=== PATIENT | male | born 1965 | race Caucasian/White ===

== ENCOUNTER 2019-04-16 17:09 | Inpatient (IN) | payer OTHER ==
[~2019-04-16] VITALS: Ht 185.4 cm; Wt 158.3 kg
[2019-04-16] MEDS ORDERED: IV NORMAL SALINE 1000ML BAG 1,000 ML IV ONE ×3 (18:15→20:45)
[2019-04-16] MEDS ORDERED: ONDANSETRON PF 4 MG/2 ML VIAL. IV ONE (18:15)
[2019-04-16] MEDS ORDERED: MORPHINE SULFATE 4 MG/ML VIAL. IV/SQ PRN (18:15)
[2019-04-16] MEDS ORDERED: FAMOTIDINE 20 MG/2 ML VIAL IVP ONE (18:15)
[2019-04-16 18:31] LABS: BASO % 0 % (0-3); EOS % 0 % (0-3); HEMATOCRIT 46.7 % (39.0-53.0); HEMOGLOBIN 15.7 g/dL (13.0-17.5); LYMPH # 0.8 x10^3/uL (1.0-4.8); LYMPH % 5 % (24-48); MEAN CORPUSCULAR HEMOGLOBIN 30 pg (25-35); MEAN CORPUSCULAR HGB CONC 34 g/dL (31-37); MEAN CORPUSCULAR VOLUME 88 fL (79-100); MONO # 0.8 x10^3/uL (0.0-1.1); MONO % 4 % (0-9); NEUT # 15.6 x10^3/uL (1.8-7.7); NEUT % 91 % (31-73); PLATELET COUNT 289 x10^3/uL (140-400); RED CELL DISTRIBUTION WIDTH 14.4 % (11.5-14.5); WHITE BLOOD COUNT 17.1 x10^3/uL (4.0-11.0)
[2019-04-16 18:52] LABS: ALBUMIN 3.2 g/dL (3.4-5.0); ALBUMIN/GLOBULIN RATIO 0.7 (1.0-1.7); CALCIUM 8.5 mg/dL (8.5-10.1); CREATININE 2.5 mg/dL (0.7-1.3); MAGNESIUM 1.7 mg/dL (1.8-2.4); POTASSIUM 3.8 mmol/L (3.5-5.1); TOTAL PROTEIN 7.5 g/dL (6.4-8.2)
[2019-04-16] MEDS ORDERED: INSULIN REGULAR 100 UNIT/ML 3ML VIAL. IV ONE ×2 (19:15→20:30)
[2019-04-16 19:55] LABS: BILIRUBIN,URINE NEGATIVE (NEG); CLARITY,URINE CLEAR; COLOR,URINE YELLOW; NITRITE,URINE NEGATIVE (NEG); PROTEIN,URINE >=300 mg/dL (NEG-TRACE); UROBILINOGEN,URINE 0.2 mg/dL (0.2 mg/dL)
--- NOTE | 2019-04-16 19:58 | RAD ---
Exam: CT abdomen and pelvis without contrast INDICATION: Abdominal pain TECHNIQUE: Sequential axial images through the abdomen and pelvis obtained without IV contrast. Sagittal and coronal reformatted images were reconstructed from the axial data and reviewed. Comparisons: None FINDINGS: Heart size is normal. No pericardial effusion. Visualized lung bases are clear. No pleural effusion. Evaluation of the solid organs is limited secondary to noncontrast technique. Liver, spleen, gallbladder and adrenals are unremarkable. There is fatty atrophy of the pancreatic head and body. The pancreatic tail is near completely replaced with a multilobulated hyperattenuating mass measuring 11.0 x 4.4 cm. No perinephric inflammation or hydronephrosis. No renal or ureteral calculi. Bladder is distended and appears thin walled. Prostate is not enlarged. Inflammatory changes are seen extending from the second portion of the duodenum down into the mesentery of the right lower quadrant. There is mild bowel wall thickening involving the hepatic flexure of the colon. Remainder of the large and small bowel are unremarkable. No obstruction. Abdominal aorta has a normal course and caliber. No enlarged intra-abdominal lymph nodes are identified. No suspicious osseous lesions or acute fractures. IMPRESSION: 1. Extensive Inflammatory changes extending from the duodenum down into the right lower quadrant mesentery and involving the pancreatic head as well as the hepatic flexure of the colon. Origin of findings is difficult to ascertain and possible differential considerations include colitis, duodenitis, and/or pancreatitis. 2. Lobulated appearance of the pancreatic tail with fatty atrophy of the pancreatic head and neck. Findings are abnormal possible differential considerations include pancreatic malignancy. Autoimmune pancreatitis is also considered. Recommend correlation with IgG4 levels. Further evaluation with MRI MRCP with contrast is recommended after resolution of primary issue. Exposure: One or more of the following in the visualized dose reduction techniques were utilized for this examination: 1. Automated exposure control 2. Adjustment of the MA and/or KV according to patient size 3. Use of iterative of reconstructive technique Electronically signed by: Jessika Beth MD (04/16/2019 7:55 PM) [facility]
[2019-04-16 20:05] LABS: % BANDS 5 % (0-9); % LYMPHS 7 % (24-48); % MONOS 5 % (0-10); % SEGS 83 % (35-66)
[2019-04-16 20:06] LABS: PLT ESTIMATE ADEQUATE (ADEQUATE)
[2019-04-16 20:13] LABS: SQUAMOUS EPITHELIAL CELL,UR MOD /LPF
[2019-04-16 20:14] LABS: RBC,URINE 0 /HPF (0-2)
[2019-04-16 20:15] LABS: BACTERIA,URINE FEW /HPF (0-FEW); WBC,URINE OCC /HPF (0-4)
[2019-04-16 20:20] LABS: AMPHETAMINE/METHAMPHETAMINE NEG (NEG); BARBITURATES NEG (NEG); BENZODIAZEPINES NEG (NEG); CANNABINOIDS NEG (NEG); COCAINE NEG (NEG); METHADONE NEG (NEG); OPIATES POS (NEG); PHENCYCLIDINE NEG (NEG)
[2019-04-16] MEDS ORDERED: LABETALOL 20 MG/4 ML DISP.SYRIN. IVP PRN (20:30)
[2019-04-16] MEDS ORDERED: diphenhydrAMINE 50 MG/ML VIAL IVP PRN (20:30)
[2019-04-16] MEDS ORDERED: MAGNESIUM SULFATE 1GM 100 ML IV ONE (20:30)
[2019-04-16] MEDS ORDERED: fentaNYL PF VIAL 100 MCG/2 ML VIAL IV PRN (20:30)
[2019-04-16] MEDS: IV NORMAL SALINE 1000ML BAG 1,000 ML IV SCH (20:41)
--- NOTE | 2019-04-16 20:42 | PHYS DOC ---
Past Medical History Past Medical History: Diabetes-Type II, Hypertension (CHRISTINE SANTIAGO APRN) Past Surgical History: No Surgical History (CHRISTINE SANTIAGO APRN) Alcohol Use: None Drug Use: None (CHRISTINE SANTIAGO APRN) Adult General Chief Complaint Chief Complaint: ABDOMINAL PAIN HPI HPI Patient is a 54 year old male with hx of DM II, HTN, Renal fx from [facility] who presents with a logistics officer to be evaluated for generalized moderate abdominal pain with nausea and vomiting that began yesterday morning. Patient states his blood glucose is also been running high since yesterday. He states he was given insulin sometime today. Denies any diarrhea. Denies any hematemesis or melena. (CHRISTINE SANTIAGO APRN) Review of Systems Review of Systems Constitutional: Denies fever or chills [] Eyes: Denies change in visual acuity, redness, or eye pain [] HENT: Denies nasal congestion or sore throat [] Respiratory: Denies cough or shortness of breath [] Cardiovascular: No additional information not addressed in HPI [] GI: Reports abdominal pain, nausea and vomiting, denies bloody stools or dayna rrhea [] : Denies dysuria or hematuria [] Musculoskeletal: Denies back pain or joint pain [] Integument: Denies rash or skin lesions [] Neurologic: Denies headache, focal weakness or sensory changes [] All other systems were reviewed and found to be within normal limits, except as documented in this note. (CHRISTINE SANTIAGO APRN) Current Medications Current Medications Current Medications Medications (Trade) Dose Ordered Sig/Tigist Start Time Stop Time Status Last Admin Dose Admin Clonidine HCl (Catapres) 0.1 mg PRN Q1HR PRN 04/16/19 20:30 Diphenhydramine HCl (Benadryl) 25 mg PRN QHS PRN 04/16/19 20:30 Famotidine (Pepcid Vial) 20 mg 1X ONCE 04/16/19 18:15 04/16/19 18:16 DC 04/16/19 18:36 20 MG Fentanyl Citrate (Fentanyl 2ml Vial) 50 mcg PRN Q2HR PRN 04/16/19 20:30 Insulin Human Regular (HumuLIN R VIAL) 20 unit 1X ONCE 04/16/19 20:30 8/16/19 20:31 DC 04/16/19 21:18 20 UNIT Labetalol HCl (Normodyne Iv Push) 20 mg PRN Q2HR PRN 04/16/19 20:30 04/16/19 20:42 20 MG Magnesium Sulfate/ Dextrose 100 ml @ 100 mls/hr 1X ONCE 04/16/19 20:30 04/16/19 21:29 DC 04/16/19 20:42 100 MLS/HR Morphine Sulfate (Morphine Sulfate) 4 mg PRN Q15MIN PRN 04/16/19 18:15 04/17/19 18:14 04/16/19 18:36 4 MG Ondansetron HCl (Zofran) 4 mg 1X ONCE 04/16/19 18:15 04/16/19 18:16 DC 04/16/19 18:36 4 MG Sodium Chloride 1,000 ml @ 125 mls/hr Q8H 04/16/19 20:30 04/16/19 20:42 150 MLS/HR (MELODIE BRUNSON DO) Allergies Allergies Allergies Coded Allergies Type Severity Reaction Last Updated Verified No Known Drug Allergies 04/16/19 No (MELODIE BRUNSON DO) Physical Exam Physical Exam Constitutional: Well developed, well nourished, no acute distress, non-toxic appearance. [] HENT: Normocephalic, atraumatic, bilateral external ears normal, oropharynx moist, no oral exudates, nose normal. [] Eyes: PERRLA, EOMI, conjunctiva normal, no discharge. [] Neck: Normal range of motion, no tenderness, supple, no stridor. [] Cardiovascular:Heart rate regular rhythm, no murmur [] Lungs & Thorax: Bilateral breath sounds clear to auscultation [] Abdomen: Obese abdomen. Bowel sounds normal, soft, diffuse tenderness throughout the abdomen, no point tenderness the right upper quadrant or right lower quadrant, negative Bryant sign, negative psoas sign, no guarding, no rebound tenderness no masses, no pulsatile masses. [] Skin: Warm, dry, no erythema, no rash. [] Back: No tenderness, no CVA tenderness. [] Extremities: No tenderness, no cyanosis, no clubbing, ROM intact, no edema. [] Neurologic: Alert and oriented X 3, normal motor function, normal sensory function, no focal deficits noted. [] Psychologic: Affect normal, judgement normal, mood normal. [] (CHRISTINE SANTIAGO PATHOLOGY LABORATORY AIDE) Current Patient Data Vital Signs Vital Signs Date Time Temp Pulse Resp B/P (MAP) Pulse Ox O2 Delivery O2 Flow Rate FiO2 04/16/19 19:13 92 21 170/80 (110) 92 Nasal Cannula 2.0 04/16/19 17:50 97.8 97.8 (BRUNSON,MELODIE rBo DO) Lab Values Laboratory Tests Test 04/16/19 17:56 04/16/19 19:45 White Blood Count 17.1 x10^3/uL (4.0-11.0) H Red Blood Count 5.30 x10^6/uL (4.30-5.70) Hemoglobin 15.7 g/dL (13.0-17.5) Hematocrit 46.7 % (39.0-53.0) Mean Corpuscular Volume 88 fL (79-100) Mean Corpuscular Hemoglobin 30 pg (25-35) Mean Corpuscular Hemoglobin Concent 34 g/dL (31-37) Red Cell Distribution Width 14.4 % (11.5-14.5) Platelet Count 289 x10^3/uL (140-400) Neutrophils (%) (Auto) 91 % (31-73) H Lymphocytes (%) (Auto) 5 % (24-48) L Monocytes (%) (Auto) 4 % (0-9) Eosinophils (%) (Auto) 0 % (0-3) Basophils (%) (Auto) 0 % (0-3) Neutrophils # (Auto) 15.6 x10^3/uL (1.8-7.7) H Lymphocytes # (Auto) 0.8 x10^3/uL (1.0-4.8) L Monocytes # (Auto) 0.8 x10^3/uL (0.0-1.1) Eosinophils # (Auto) 0.0 x10^3/uL (0.0-0.7) Basophils # (Auto) 0.0 x10^3/uL (0.0-0.2) Segmented Neutrophils % 83 % (35-66) H Band Neutrophils % 5 % (0-9) Lymphocytes % 7 % (24-48) L Monocytes % 5 % (0-10) Platelet Estimate Adequate (ADEQUATE) Sodium Level 139 mmol/L (136-145) Potassium Level 3.8 mmol/L (3.5-5.1) Chloride Level 99 mmol/L (98-107) Carbon Dioxide Level 25 mmol/L (21-32) Anion Gap 15 (6-14) H Blood Urea Nitrogen 36 mg/dL (8-26) H Creatinine 2.5 mg/dL (0.7-1.3) H Estimated GFR (Cockcroft-Gault) 27.0 BUN/Creatinine Ratio 14 (6-20) Glucose Level 574 mg/dL (70-99) *H Calcium Level 8.5 mg/dL (8.5-10.1) Magnesium Level 1.7 mg/dL (1.8-2.4) L Total Bilirubin 1.0 mg/dL (0.2-1.0) Aspartate Amino Transferase (AST) 20 U/L (15-37) Alanine Aminotransferase (ALT) 30 U/L (16-63) Alkaline Phosphatase 133 U/L (46-116) H Creatine Kinase 263 U/L (39-308) Creatine Kinase MB (Mass) 5.9 ng/mL (0.0-3.6) H Creatine Kinase MB Relative Index 2.2 % (0-4) Troponin I Quantitative 0.048 ng/mL (0.000-0.055) RU-Xys-U-Type Natriuretic Peptide 1718 pg/mL (0-124) H Total Protein 7.5 g/dL (6.4-8.2) Albumin 3.2 g/dL (3.4-5.0) L Albumin/Globulin Ratio 0.7 (1.0-1.7) L Lipase 1691 U/L (73-393) H Thyroid Stimulating Hormone (TSH) 1.247 uIU/mL (0.358-3.74) Free Thyroxine 0.99 ng/dL (0.76-1.46) Free Triiodothyronine (T3) pg/mL 1.96 pg/mL (2.18-3.98) L Urine Collection Type Unknown Urine Color Yellow Urine Clarity Clear Urine pH 5.0 Urine Specific [place] 1.025 Urine Protein >=300 mg/dL (NEG-TRACE) Urine Glucose (UA) >=1000 mg/dL (NEG) Urine Ketones (Stick) Trace mg/dL (NEG) Urine Blood Moderate (NEG) Urine Nitrite Negative (NEG) Urine Bilirubin Negative (NEG) Urine Urobilinogen Dipstick 0.2 mg/dL (0.2 mg/dL) Urine Leukocyte Esterase Negative (NEG) Urine RBC 0 /HPF (0-2) Urine WBC Occ /HPF (0-4) Urine Squamous Epithelial Cells Mod /LPF Urine Bacteria Few /HPF (0-FEW) Urine Mucus Slight /LPF Urine Opiates Screen Pos (NEG) Urine Methadone Screen Neg (NEG) Urine Barbiturates Neg (NEG) Urine Phencyclidine Screen Neg (NEG) Urine Amphetamine/Methamphetamine Neg (NEG) Urine Benzodiazepines Screen Neg (NEG) Urine Cocaine Screen Neg (NEG) Urine Cannabinoids Screen Neg (NEG) Urine Ethyl Alcohol Neg (NEG) Laboratory Tests 04/16/19 17:56 Laboratory Tests 04/16/19 17:56 (MELODIE BRUNSON DO) EKG EKG [address] Alegre sinus rhythm HR 98 no STEMI[] (CHRISTINE SANTIAGO APRN) Radiology/Procedures Radiology/Procedures []PROCEDURE: CT ABDOMEN PELVIS WO CONTRAST Exam: CT abdomen and pelvis without contrast INDICATION: Abdominal pain TECHNIQUE: Sequential axial images through the abdomen and pelvis obtained without IV contrast. Sagittal and coronal reformatted images were reconstructed from the axial data and reviewed. Comparisons: None FINDINGS: Heart size is normal. No pericardial effusion. Visualized lung bases are clear. No pleural effusion. Evaluation of the solid organs is limited secondary to noncontrast technique. Liver, spleen, gallbladder and adrenals are unremarkable. There is fatty atrophy of the pancreatic head and body. The pancreatic tail is near completely replaced with a multilobulated hyperattenuating mass measuring 11.0 x 4.4 cm. No perinephric inflammation or hydronephrosis. No renal or ureteral calculi. Bladder is distended and appears thin walled. Prostate is not enlarged. Inflammatory changes are seen extending from the second portion of the duodenum down into the mesentery of the right lower quadrant. There is mild bowel wall thickening involving the hepatic flexure of the colon. Remainder of the large and small bowel are unremarkable. No obstruction. Abdominal aorta has a normal course and caliber. No enlarged intra-abdominal lymph nodes are identified. No suspicious osseous lesions or acute fractures. IMPRESSION: 1. Extensive Inflammatory changes extending from the duodenum down into the right lower quadrant mesentery and involving the pancreatic head as well as the hepatic flexure of the colon. Origin of findings is difficult to ascertain and possible differential considerations include colitis, duodenitis, and/or pancreatitis. 2. Lobulated appearance of the pancreatic tail with fatty atrophy of the pancreatic head and neck. Findings are abnormal possible differential considerations include pancreatic malignancy. Autoimmune pancreatitis is also considered. Recommend correlation with IgG4 levels. Further evaluation with MRI MRCP with contrast is recommended after resolution of primary issue. Exposure: One or more of the following in the visualized dose reduction techniques were utilized for this examination: 1. Automated exposure control 2. Adjustment of the MA and/or KV according to patient size 3. Use of iterative of reconstructive technique Electronically signed by: Jessika Briggs MD (04/16/2019 7:55 PM) [facility] DICTATED and SIGNED BY: JESSIKA BRIGGS MD DATE: 04/16/191954 (CHRISTINE SANTIAGO APRN) Course & Med Decision Making Course & Med Decision Making Pertinent Labs and Imaging studies reviewed. (See chart for details) This is a 54-year-old inmate male patient presenting to the ED today with generalized abdominal pain, nausea vomiting since yesterday. CBC with a WBC of 17.1 with a shift, CMP with glucose of 574, anion gap is 15, creatinine is 2.5, BUN is 36, patient states he has history of chronic renal insufficiency. Lipase 1691. CT of the abdomen and pelvic-Extensive Inflammatory changes extending from the duodenum down into the right lower quadrant mesentery and involving the pancreatic head as well as the hepatic flexure of the colon. Origin of findings is difficult to ascertain and possible differential considerations include colitis, duodenitis, and/or pancreatitis. Lobulated appearance of the pancreatic tail with fatty atrophy of the pancreatic head and neck. Findings are abnormal possible differential considerations include pancreatic malignancy. Autoimmune pancreatitis is also considered. Recommend correlation with IgG4 levels. Further evaluation with MRI MRCP with contrast is recommended after resolution of prim liam issue. Consulted with Dr. Suh who accepted patient for admission Routine consult placed for GI (CHRISTINE SANTIAGO APRN) Dragon Disclaimer Dragon Disclaimer This electronic medical record was generated, in whole or in part, using a voice recognition dictation system. (CHRISTINE SANTIAGO APRN) Departure Departure Impression: Primary Impression: Acute pancreatitis Additional Impressions: Hyperglycemia Chronic renal failure Disposition: ADMITTED INPATIENT Condition: STABLE Referrals: UNKNOWN PCP NAME (PCP) Attending Signature Attending Signature I have reviewed the PA/RESIDENTIAL CAREGIVER's note and plan of care. I was available for consultation as needed during the patient's visit in the emergency department. I agree with the clinical impression, plan, and disposition. (MELODIE BRUNSON DO) Problem Qualifiers Primary Impression: Acute pancreatitis Pancreatitis type: unspecified pancreatitis type Acute pancreatitis complication: unspecified Qualified Codes: K85.90 - Acute pancreatitis without necrosis or infection, unspecified Additional Impressions: Chronic renal failure Chronic kidney disease stage: unspecified stage Qualified Codes: N18.9 - Chronic kidney disease, unspecified CHRISTINE SANTIAGO PATHOLOGY LABORATORY AIDE Apr 16, 2019 20:42 MELODIE BRUNSON DO Apr 17, 2019 02:03
[2019-04-16] MEDS ORDERED: ONDANSETRON PF 4 MG/2 ML VIAL. IV PRN (20:45)
[2019-04-16] MEDS ORDERED: MORPHINE SULFATE 4 MG/ML VIAL. IV PRN (20:45)
[2019-04-16] MEDS ORDERED: CIPROFLOXACIN 400MG PREMIX 200 ML IV ONE (21:00)
[2019-04-16] MEDS: FAMOTIDINE 20 MG/2 ML VIAL IVP SCH (21:00)
--- NOTE | 2019-04-16 22:11 | PDOC1 ---
History and Physical Date of Admission Date of Admission DATE: 04/16/19 TIME: 22:05 Identification/Chief Complaint Chief Complaint abd pain Source Source: Caregiver, Chart review, Patient History of Present Illness History of Present Illness 54 y.op morbidly obese inmate, male, dm on hefty doses insulin with hgba1c anywhere between 7 and 8, abd pain today, epig and rt sided with lipase > 1K and abN ct showing pancreatitis hence admitted, NOn drinker bUT DM with BS 538, NO emesis but maybe some nausea, no fevers I have reconciled home meds, ageeable NPO< bowel rest, etc CT: IMPRESSION: 1. Extensive Inflammatory changes extending from the duodenum down into the right lower quadrant mesentery and involving the pancreatic head as well as the hepatic flexure of the colon. Origin of findings is difficult to ascertain and possible differential considerations include colitis, duodenitis, and/or pancreatitis. 2. Lobulated appearance of the pancreatic tail with fatty atrophy of the pancreatic head and neck. Findings are abnormal possible differential considerations include pancreatic malignancy. Autoimmune pancreatitis is also considered. Recommend correlation with IgG4 levels. Further evaluation with MRI MRCP with contrast is recommended after resolution of primary issue. Past Medical History Cardiovascular: HTN GI: Constipation, Diverticulosis Rheumatologic: Gout Endocrine: Diabetes, Hypothyroidism Past Surgical History Past Surgical History: No pertinent history Family History Family History: Family History Unknown Social History Smoke: No ALCOHOL: none Drugs: None Current Medications Current Medications Current Medications Morphine Sulfate (Morphine Sulfate) 4 mg PRN Q15MIN PRN IV/SQ PAIN GREATER THAN 3/10 Last administered on 04/16/19at 18:36; Start 04/16/19 at 18:15; Stop 04/17/19 at 18:14 Sodium Chloride 1,000 ml @ 1,000 mls/hr 1X ONCE IV Last administered on 04/16/19at 18:36; Start 04/16/19 at 18:15; Stop 04/16/19 at 19:14; Status DC Famotidine (Pepcid Vial) 20 mg 1X ONCE IVP Last administered on 04/16/19at 18:36; Start 04/16/19 at 18:15; Stop 04/16/19 at 18:16; Status DC Ondansetron HCl (Zofran) 4 mg 1X ONCE IV Last administered on 04/16/19at 18:36; Start 04/16/19 at 18:15; Stop 04/16/19 at 18:16; Status DC Sodium Chloride 1,000 ml @ 1,000 mls/hr 1X ONCE IV Last administered on 04/16/19at 19:21; Start 04/16/19 at 19:15; Stop 04/16/19 at 20:14; Status DC Insulin Human Regular (HumuLIN R VIAL) 8 unit 1X ONCE IV Last administered on 04/16/19at 19:21; Start 04/16/19 at 19:15; Stop 04/16/19 at 19:16; Status DC Sodium Chloride 1,000 ml @ 150 mls/hr Q6H40M IV Last administered on 04/16/19at 20:42; Start 04/16/19 at 20:30 Magnesium Sulfate/ Dextrose 100 ml @ 100 mls/hr 1X ONCE IV Last administered on 04/16/19at 20:42; Start 04/16/19 at 20:30; Stop 04/16/19 at 21:29; Status DC Insulin Human Regular (HumuLIN R VIAL) 20 unit 1X ONCE IV Last administered on 04/16/19at 21:18; Start 04/16/19 at 20:30; Stop 04/16/19 at 20:31; Status DC Labetalol HCl (Normodyne Iv Push) 20 mg PRN Q2HR PRN IVP HYPERTENSION Last administered on 04/16/19at 20:42; Start 04/16/19 at 20:30 Clonidine HCl (Catapres) 0.1 mg PRN Q1HR PRN PO HYPERTENSION; Start 04/16/19 at 20:30 Diphenhydramine HCl (Benadryl) 25 mg PRN QHS PRN IVP sleep; Start 04/16/19 at 20:30 Fentanyl Citrate (Fentanyl 2ml Vial) 50 mcg PRN Q2HR PRN IV PAIN; Start 04/16/19 at 20:30 Famotidine (Pepcid Vial) 20 mg QHS IVP ; Start 04/16/19 at 21:00 Ondansetron HCl (Zofran) 4 mg PRN Q8HRS PRN IV NAUSEA/VOMITING 1ST CHOICE; Start 04/16/19 at 20:45; Stop 04/17/19 at 20:44 Morphine Sulfate (Morphine Sulfate) 4 mg PRN Q2HR PRN IV SEVERE PAIN 7-10; Start 04/16/19 at 20:45; Stop 04/17/19 at 20:44 Ciprofloxacin/ Dextrose 200 ml @ 200 mls/hr 1X ONCE IV ; Start 04/16/19 at 21:00; Stop 04/16/19 at 21:59; Status DC Sodium Chloride 1,000 ml @ 75 mls/hr 1X ONCE IV ; Start 04/16/19 at 20:45; Stop 04/17/19 at 10:04 Allopurinol (Zyloprim) 100 mg DAILY PO ; Start 04/17/19 at 09:00; Status UNV Insulin Human Isoph/Insulin Regular (HumuLIN 70/30) 85 units QHS SQ ; Start 04/17/19 at 21:00; Status UNV Insulin Human Isoph/Insulin Regular (HumuLIN 70/30) 55 units DAILY SQ ; Start 04/17/19 at 09:00; Status UNV Insulin Human Lispro (HumaLOG) 0-9 UNITS TIDWMEALS SQ ; Start 04/17/19 at 08:00; Status UNV Dextrose (Dextrose 50%-Water Syringe) 12.5 gm PRN Q15MIN PRN IV SEE COMMENTS; Start 04/16/19 at 22:15; Status UNV Dextrose 250 ml PRN Q15MIN PRN IV SEE COMMENTS; Start 04/16/19 at 22:15; Status UNV Insulin Human Lispro (HumaLOG) 15 units TIDWMEALS SQ ; Start 04/17/19 at 08:00; Status UNV Allergies Allergies: Coded Allergies: No Known Drug Allergies (Unverified , 04/16/19) ROS Review of System as per HPI,rest 14 pt neg Physical Exam General: Alert, Oriented X3, Cooperative, No acute distress HEENT: Atraumatic, PERRLA, EOMI Lungs: Clear to auscultation, Normal air movement Heart: S1S2, RRR, no thrills, no rubs, no gallops, no murmurs Cardiovascular: S1, S2 Abdomen: Soft, Other (hypoactive BS< hard to assess pain sec to body habitus) Rectal Exam: not examined PELVIC: Nml ext genitalia Extremities: No clubbing, No cyanosis, No edema, Normal pulses, No tenderness/swelling Skin: No rashes, No breakdown, No significant lesion Neuro: Normal gait, Normal speech, Strength at 5/5 X4 ext, Normal tone, Sensation intact, Cranial nerves 3-12 NL, Reflexes 2+ Psych/Mental Status: Mental status NL, Mood NL Vitals Vitals Vital Signs Date Time Temp Pulse Resp B/P (MAP) Pulse Ox O2 Delivery O2 Flow Rate FiO2 04/16/19 20:42 92 170/80 04/16/19 19:13 21 92 Nasal Cannula 2.0 04/16/19 17:50 97.8 97.8 Labs Labs Laboratory Tests Test 04/16/19 17:56 04/16/19 19:45 White Blood Count 17.1 x10^3/uL (4.0-11.0) Red Blood Count 5.30 x10^6/uL (4.30-5.70) Hemoglobin 15.7 g/dL (13.0-17.5) Hematocrit 46.7 % (39.0-53.0) Mean Corpuscular Volume 88 fL (79-100) Mean Corpuscular Hemoglobin 30 pg (25-35) Mean Corpuscular Hemoglobin Concent 34 g/dL (31-37) Red Cell Distribution Width 14.4 % (11.5-14.5) Platelet Count 289 x10^3/uL (140-400) Neutrophils (%) (Auto) 91 % (31-73) Lymphocytes (%) (Auto) 5 % (24-48) Monocytes (%) (Auto) 4 % (0-9) Eosinophils (%) (Auto) 0 % (0-3) Basophils (%) (Auto) 0 % (0-3) Neutrophils # (Auto) 15.6 x10^3/uL (1.8-7.7) Lymphocytes # (Auto) 0.8 x10^3/uL (1.0-4.8) Monocytes # (Auto) 0.8 x10^3/uL (0.0-1.1) Eosinophils # (Auto) 0.0 x10^3/uL (0.0-0.7) Basophils # (Auto) 0.0 x10^3/uL (0.0-0.2) Segmented Neutrophils % 83 % (35-66) Band Neutrophils % 5 % (0-9) Lymphocytes % 7 % (24-48) Monocytes % 5 % (0-10) Platelet Estimate Adequate (ADEQUATE) Sodium Level 139 mmol/L (136-145) Potassium Level 3.8 mmol/L (3.5-5.1) Chloride Level 99 mmol/L (98-107) Carbon Dioxide Level 25 mmol/L (21-32) Anion Gap 15 (6-14) Blood Urea Nitrogen 36 mg/dL (8-26) Creatinine 2.5 mg/dL (0.7-1.3) Estimated GFR (Cockcroft-Gault) 27.0 BUN/Creatinine Ratio 14 (6-20) Glucose Level 574 mg/dL (70-99) Calcium Level 8.5 mg/dL (8.5-10.1) Magnesium Level 1.7 mg/dL (1.8-2.4) Total Bilirubin 1.0 mg/dL (0.2-1.0) Aspartate Amino Transf (AST/SGOT) 20 U/L (15-37) Alanine Aminotransferase (ALT/SGPT) 30 U/L (16-63) Alkaline Phosphatase 133 U/L (46-116) Creatine Kinase 263 U/L (39-308) Creatine Kinase MB (Mass) 5.9 ng/mL (0.0-3.6) Creatine Kinase MB Relative Index 2.2 % (0-4) Troponin I Quantitative 0.048 ng/mL (0.000-0.055) XR-Lzb-R-Type Natriuretic Peptide 1718 pg/mL (0-124) Total Protein 7.5 g/dL (6.4-8.2) Albumin 3.2 g/dL (3.4-5.0) Albumin/Globulin Ratio 0.7 (1.0-1.7) Lipase 1691 U/L (73-393) Thyroid Stimulating Hormone (TSH) 1.247 uIU/mL (0.358-3.74) Urine Collection Type Unknown Urine Color Yellow Urine Clarity Clear Urine pH 5.0 Urine Specific [place] 1.025 Urine Protein >=300 mg/dL (NEG-TRACE) Urine Glucose (UA) >=1000 mg/dL (NEG) Urine Ketones (Stick) Trace mg/dL (NEG) Urine Blood Moderate (NEG) Urine Nitrite Negative (NEG) Urine Bilirubin Negative (NEG) Urine Urobilinogen Dipstick 0.2 mg/dL (0.2 mg/dL) Urine Leukocyte Esterase Negative (NEG) Urine RBC 0 /HPF (0-2) Urine WBC Occ /HPF (0-4) Urine Squamous Epithelial Cells Mod /LPF Urine Bacteria Few /HPF (0-FEW) Urine Mucus Slight /LPF Urine Opiates Screen Pos (NEG) Urine Methadone Screen Neg (NEG) Urine Barbiturates Neg (NEG) Urine Phencyclidine Screen Neg (NEG) Urine Amphetamine/Methamphetamine Neg (NEG) Urine Benzodiazepines Screen Neg (NEG) Urine Cocaine Screen Neg (NEG) Urine Cannabinoids Screen Neg (NEG) Urine Ethyl Alcohol Neg (NEG) Laboratory Tests Test 04/16/19 17:56 04/16/19 19:45 White Blood Count 17.1 x10^3/uL (4.0-11.0) Red Blood Count 5.30 x10^6/uL (4.30-5.70) Hemoglobin 15.7 g/dL (13.0-17.5) Hematocrit 46.7 % (39.0-53.0) Mean Corpuscular Volume 88 fL (79-100) Mean Corpuscular Hemoglobin 30 pg (25-35) Mean Corpuscular Hemoglobin Concent 34 g/dL (31-37) Red Cell Distribution Width 14.4 % (11.5-14.5) Platelet Count 289 x10^3/uL (140-400) Neutrophils (%) (Auto) 91 % (31-73) Lymphocytes (%) (Auto) 5 % (24-48) Monocytes (%) (Auto) 4 % (0-9) Eosinophils (%) (Auto) 0 % (0-3) Basophils (%) (Auto) 0 % (0-3) Neutrophils # (Auto) 15.6 x10^3/uL (1.8-7.7) Lymphocytes # (Auto) 0.8 x10^3/uL (1.0-4.8) Monocytes # (Auto) 0.8 x10^3/uL (0.0-1.1) Eosinophils # (Auto) 0.0 x10^3/uL (0.0-0.7) Basophils # (Auto) 0.0 x10^3/uL (0.0-0.2) Segmented Neutrophils % 83 % (35-66) Band Neutrophils % 5 % (0-9) Lymphocytes % 7 % (24-48) Monocytes % 5 % (0-10) Platelet Estimate Adequate (ADEQUATE) Sodium Level 139 mmol/L (136-145) Potassium Level 3.8 mmol/L (3.5-5.1) Chloride Level 99 mmol/L (98-107) Carbon Dioxide Level 25 mmol/L (21-32) Anion Gap 15 (6-14) Blood Urea Nitrogen 36 mg/dL (8-26) Creatinine 2.5 mg/dL (0.7-1.3) Estimated GFR (Cockcroft-Gault) 27.0 BUN/Creatinine Ratio 14 (6-20) Glucose Level 574 mg/dL (70-99) Calcium Level 8.5 mg/dL (8.5-10.1) Magnesium Level 1.7 mg/dL (1.8-2.4) Total Bilirubin 1.0 mg/dL (0.2-1.0) Aspartate Amino Transf (AST/SGOT) 20 U/L (15-37) Alanine Aminotransferase (ALT/SGPT) 30 U/L (16-63) Alkaline Phosphatase 133 U/L (46-116) Creatine Kinase 263 U/L (39-308) Creatine Kinase MB (Mass) 5.9 ng/mL (0.0-3.6) Creatine Kinase MB Relative Index 2.2 % (0-4) Troponin I Quantitative 0.048 ng/mL (0.000-0.055) DG-Sop-U-Type Natriuretic Peptide 1718 pg/mL (0-124) Total Protein 7.5 g/dL (6.4-8.2) Albumin 3.2 g/dL (3.4-5.0) Albumin/Globulin Ratio 0.7 (1.0-1.7) Lipase 1691 U/L (73-393) Thyroid Stimulating Hormone (TSH) 1.247 uIU/mL (0.358-3.74) Urine Collection Type Unknown Urine Color Yellow Urine Clarity Clear Urine pH 5.0 Urine Specific [place] 1.025 Urine Protein >=300 mg/dL (NEG-TRACE) Urine Glucose (UA) >=1000 mg/dL (NEG) Urine Ketones (Stick) Trace mg/dL (NEG) Urine Blood Moderate (NEG) Urine Nitrite Negative (NEG) Urine Bilirubin Negative (NEG) Urine Urobilinogen Dipstick 0.2 mg/dL (0.2 mg/dL) Urine Leukocyte Esterase Negative (NEG) Urine RBC 0 /HPF (0-2) Urine WBC Occ /HPF (0-4) Urine Squamous Epithelial Cells Mod /LPF Urine Bacteria Few /HPF (0-FEW) Urine Mucus Slight /LPF Urine Opiates Screen Pos (NEG) Urine Methadone Screen Neg (NEG) Urine Barbiturates Neg (NEG) Urine Phencyclidine Screen Neg (NEG) Urine Amphetamine/Methamphetamine Neg (NEG) Urine Benzodiazepines Screen Neg (NEG) Urine Cocaine Screen Neg (NEG) Urine Cannabinoids Screen Neg (NEG) Urine Ethyl Alcohol Neg (NEG) VTE Prophylaxis Ordered VTE Prophylaxis Devices: Yes VTE Pharmacological Prophylaxi: Yes Assessment/Plan Assessment/Plan Acute pancreatitis Inmate ELDA (BS 530s) Morbid obesity BMI 46.4 NOn drinker Dyslipidemia Hypothyroid on synthroid - check levels IMPRESSION: 1. Extensive Inflammatory changes extending from the duodenum down into the right lower quadrant mesentery and involving the pancreatic head as well as the hepatic flexure of the colon. Origin of findings is difficult to ascertain and possible differential considerations include colitis, duodenitis, and/or pancreatitis. 2. Lobulated appearance of the pancreatic tail with fatty atrophy of the pancreatic head and neck. Findings are abnormal possible differential considerations include pancreatic malignancy. Autoimmune pancreatitis is also considered. Recommend correlation with IgG4 levels. Further evaluation with MRI MRCP with contrast is recommended after resolution of primary issue. WILL CHECK CA 19-9 and get GI given above CT results PAin control, CONTROL BS< hgba1c check PO, IVF 2 MN< med surg floor ok Seen at ER FULL [facility] KAMLESH HOUGH MD Apr 16, 2019 22:10
[2019-04-16] MEDS ORDERED: MAGNESIUM HYDROXIDE 2,400 MG/30 ML ORAL.SUSP. PO PRN (22:15)
[2019-04-16] MEDS ORDERED: DEXTROSE 50% 25 GM / 50ML DISP.SYRIN. IV PRN (22:15)
[2019-04-16] MEDS ORDERED: IV DEXTROSE 5% 250 ML BAG. IV PRN (22:15)
[2019-04-16] MEDS ORDERED: SALIVA STIMULANT AGENT 44ML SPRAY BOTTLE. PO PRN (22:45)
[2019-04-16 23:00] VITALS: BP 144/67
[2019-04-16 23:12] LABS: FREE T4 0.99 ng/dL (0.76-1.46)
[2019-04-17] MEDS ORDERED: HUM100IN3 SQ ×2 (01:28)
[2019-04-17] MEDS ORDERED: DULO60CA6 PO (01:28)
[2019-04-17] MEDS ORDERED: BISA-42 PO (01:28)
[2019-04-17] MEDS ORDERED: SIME125T PO (01:28)
[2019-04-17] MEDS ORDERED: ALLO100T PO (01:28)
[2019-04-17] MEDS ORDERED: LEVO75TA5 PO (01:28)
[2019-04-17] MEDS ORDERED: ALBU2.5V8 INH (01:28)
[2019-04-17] MEDS ORDERED: ASPI-630 PO (01:28)
[2019-04-17] MEDS ORDERED: INSU100V5 SQ (01:28)
[2019-04-17] MEDS ORDERED: CICL6.1H3 IH (01:28)
[2019-04-17] MEDS ORDERED: ACET325T9 PO (01:28)
[2019-04-17] MEDS ORDERED: POLY17PO29 PO (01:28)
[2019-04-17] MEDS ORDERED: ATOR20TA58 PO (01:28)
[2019-04-17] MEDS ORDERED: DOCU100C28 PO (01:28)
[2019-04-17] MEDS ORDERED: CETI10TA16 PO (01:28)
[2019-04-17] MEDS ORDERED: ERGO500027 PO (01:28)
[2019-04-17] MEDS ORDERED: LISI-130 PO (01:28)
[2019-04-17] MEDS ORDERED: FURO-68 PO (01:28)
[2019-04-17] MEDS ORDERED: RANI150T2 PO (01:28)
[2019-04-17 02:42] VITALS: BP 165/99
[2019-04-17] MEDS: LEVOTHYROXINE 75 MCG TABLET PO SCH (05:41)
[2019-04-17] MEDS: IV NORMAL SALINE 1000ML BAG 1,000 ML IV SCH ×3 (05:42→20:24)
[2019-04-17 07:00] VITALS: BP 178/95
[2019-04-17 07:16] LABS: BASO % 0 % (0-3); EOS % 0 % (0-3); HEMATOCRIT 40.3 % (39.0-53.0); HEMOGLOBIN 13.6 g/dL (13.0-17.5); LYMPH # 0.9 x10^3/uL (1.0-4.8); LYMPH % 5 % (24-48); MEAN CORPUSCULAR HEMOGLOBIN 29 pg (25-35); MEAN CORPUSCULAR HGB CONC 34 g/dL (31-37); MEAN CORPUSCULAR VOLUME 87 fL (79-100); MONO % 6 % (0-9); NEUT # 14.8 x10^3/uL (1.8-7.7); NEUT % 88 % (31-73); PLATELET COUNT 211 x10^3/uL (140-400); RED BLOOD COUNT 4.61 x10^6/uL (4.30-5.70); RED CELL DISTRIBUTION WIDTH 14.5 % (11.5-14.5); WHITE BLOOD COUNT 16.7 x10^3/uL (4.0-11.0)
[2019-04-17 07:24] LABS: CALCIUM 8.3 mg/dL (8.5-10.1); CREATININE 1.8 mg/dL (0.7-1.3); GFR 39.5; POTASSIUM 3.7 mmol/L (3.5-5.1)
[2019-04-17] MEDS: INSULIN LISPRO 300 UNITS/3 ML VIAL. SQ SCH ×6 (08:00→17:23)
[2019-04-17] MEDS: ASPIRIN 325 MG TABLET PO SCH (08:00)
[2019-04-17] MEDS: FUROSEMIDE 20 MG TABLET PO SCH (08:50)
[2019-04-17] MEDS: LISINOPRIL 20 MG TABLET PO SCH (08:51)
[2019-04-17] MEDS: DULoxetine HCL 30 MG CAPSULE.DR PO SCH (09:00)
[2019-04-17] MEDS: INSULIN NPH/REG INSULIN 70/30 300 UNITS/3 ML INSULN.PEN. SQ SCH ×2 (09:00→20:33)
[2019-04-17] MEDS: POLYETHYLENE GLYCOL 3350 17 GM PACKET. PO SCH (09:00)
[2019-04-17] MEDS: ALLOPURINOL 100 MG TABLET. PO SCH (09:00)
[2019-04-17] MEDS: DOCUSATE SODIUM 100 MG CAPSULE. PO SCH (09:00)
[2019-04-17 11:00] VITALS: BP 176/89
--- NOTE | 2019-04-17 11:51 | PDOC2 ---
CONSULT Date of Consult Date of Consult DATE: 04/17/19 TIME: 11:49 Reason for Consult Reason for Consult: Pancreatitis/abnl Ct cystic mass of pancreatic tail Past Medical History Cardiovascular: HTN GI: Constipation, Diverticulosis Rheumatologic: Gout Endocrine: Diabetes, Hypothyroidism Past Surgical History Past Surgical History: No pertinent history Family History Family History: Family History Unknown Social History No ALCOHOL: none Drugs: None Current Medications Current Medications Current Medications Morphine Sulfate (Morphine Sulfate) 4 mg PRN Q15MIN PRN IV/SQ PAIN GREATER THAN 3/10 Last administered on 04/16/19 18:36; Start 04/16/19 at 18:15; Stop 04/17/19 at 18:14 Sodium Chloride 1,000 ml @ 1,000 mls/hr 1X ONCE IV Last administered on 04/16/19at 18:36; Start 04/16/19 at 18:15; Stop 04/16/19 at 19:14; Status DC Famotidine (Pepcid Vial) 20 mg 1X ONCE IVP Last administered on 04/16/19at 18:36; Start 04/16/19 at 18:15; Stop 04/16/19 at 18:16; Status DC Ondansetron HCl (Zofran) 4 mg 1X ONCE IV Last administered on 04/16/19at 18:36; Start 04/16/19 at 18:15; Stop 04/16/19 at 18:16; Status DC Sodium Chloride 1,000 ml @ 1,000 mls/hr 1X ONCE IV Last administered on 04/16/19at 19:21; Start 04/16/19 at 19:15; Stop 04/16/19 at 20:14; Status DC Insulin Human Regular (HumuLIN R VIAL) 8 unit 1X ONCE IV Last administered on 04/16/19at 19:21; Start 04/16/19 at 19:15; Stop 04/16/19 at 19:16; Status DC Sodium Chloride 1,000 ml @ 125 mls/hr Q8H IV Last administered on 04/17/19at 05:43; Start 04/16/19 at 20:30 Magnesium Sulfate/ Dextrose 100 ml @ 100 mls/hr 1X ONCE IV Last administered on 04/16/19at 20:42; Start 04/16/19 at 20:30; Stop 04/16/19 at 21:29; Status DC Insulin Human Regular (HumuLIN R VIAL) 20 unit 1X ONCE IV Last administered on 04/16/19at 21:18; Start 04/16/19 at 20:30; Stop 04/16/19 at 20:31; Status DC Labetalol HCl (Normodyne Iv Push) 20 mg PRN Q2HR PRN IVP HYPERTENSION Last admi nistered on 04/16/19at 20:42; Start 04/16/19 at 20:30 Clonidine HCl (Catapres) 0.1 mg PRN Q1HR PRN PO HYPERTENSION; Start 04/16/19 at 20:30 Diphenhydramine HCl (Benadryl) 25 mg PRN QHS PRN IVP sleep; Start 04/16/19 at 20:30 Fentanyl Citrate (Fentanyl 2ml Vial) 50 mcg PRN Q2HR PRN IV PAIN; Start 04/16/19 at 20:30 Famotidine (Pepcid Vial) 20 mg QHS IVP ; Start 04/16/19 at 21:00 Ondansetron HCl (Zofran) 4 mg PRN Q8HRS PRN IV NAUSEA/VOMITING 1ST CHOICE; Start 04/16/19 at 20:45; Stop 04/17/19 at 20:44 Morphine Sulfate (Morphine Sulfate) 4 mg PRN Q2HR PRN IV SEVERE PAIN 7-10 Last administered on 04/17/19at 05:46; Start 04/16/19 at 20:45; Stop 04/17/19 at 20:44 Ciprofloxacin/ Dextrose 200 ml @ 200 mls/hr 1X ONCE IV Last administered on 04/16/19at 22:59; Start 04/16/19 at 21:00; Stop 04/16/19 at 21:59; Status DC Sodium Chloride 1,000 ml @ 75 mls/hr 1X ONCE IV ; Start 04/16/19 at 20:45; Stop 04/17/19 at 10:04; Status DC Allopurinol (Zyloprim) 100 mg DAILY PO ; Start 04/17/19 at 09:00 Insulin Human Isoph/Insulin Regular (HumuLIN 70/30) 85 units QHS SQ ; Start 04/17/19 at 21:00 Insulin Human Isoph/Insulin Regular (HumuLIN 70/30) 55 units DAILY SQ ; Start 04/17/19 at 09:00 Insulin Human Lispro (HumaLOG) 0-9 UNITS TIDWMEALS SQ Last administered on 04/17/19at 08:55; Start 04/17/19 at 08:00 Dextrose (Dextrose 50%-Water Syringe) 12.5 gm PRN Q15MIN PRN IV SEE COMMENTS; Start 04/16/19 at 22:15 Dextrose 250 ml PRN Q15MIN PRN IV SEE COMMENTS; Start 04/16/19 at 22:15 Insulin Human Lispro (HumaLOG) 15 units TIDWMEALS SQ ; Start 04/17/19 at 08:00 Atorvastatin Calcium (Lipitor) 20 mg QHS PO ; Start 04/17/19 at 21:00 Docusate Sodium (Colace) 100 mg DAILY PO ; Start 04/17/19 at 09:00 Duloxetine HCl (Cymbalta) 60 mg DAILY PO ; Start 04/17/19 at 09:00 Acetaminophen/ Hydrocodone Bitart (Lortab 5/325) 1 tab PRN Q4HRS PRN PO MODERATE PAIN 4-6; Start 04/16/19 at 22:15 Furosemide (Lasix) 60 mg DAILY PO Last administered on 04/17/19at 08:55; Start 04/17/19 at 09:00 Levothyroxine Sodium (Synthroid) 75 mcg DAILY06 PO ; Start 04/17/19 at 06:00 Lisinopril (Prinivil) 40 mg DAILY PO Last administered on 04/17/19at 08:55; Start 04/17/19 at 09:00 Polyethylene Glycol (miraLAX PACKET) 17 gm DAILY PO ; Start 04/17/19 at 09:00 Ergocalciferol (Vitamin D2) 50,000 unit WEEKLY PO ; Start 04/23/19 at 09:00 Aspirin (Estella Aspirin) 325 mg DAILYWBKFT PO ; Start 04/17/19 at 08:00 Magnesium Hydroxide (Milk Of Magnesia) 2,400 mg PRN DAILY PRN PO CONSTIPATION 1ST CHOICE; Start 04/16/19 at 22:15 Saliva Substitute (Biotene Moisturizing Mouth) 2 spray PRN Q15MIN PRN PO DRY MOUTH Last administered on 04/16/19at 22:59; Start 04/16/19 at 22:45 Active Scripts Active Reported Proair Hfa Inhaler (Albuterol Sulfate) 8.5 Gm Hfa.aer.ad 1 Puff INH PRN DAILY PRN Vitamin D2 (Ergocalciferol (Vitamin D2)) 50,000 Unit Capsule 50,000 Unit PO WEEKLY Humulin 70/30 Kwikpen (Hum Insulin Nph/Reg Insulin Hm) 100 Unit/1 Ml Insuln.pen 55 Unit SQ DAILYWSUP Humulin 70/30 Kwikpen (Hum Insulin Nph/Reg Insulin Hm) 100 Unit/1 Ml Insuln.pen 85 Unit SQ DAILYWBKFT Humulin R (Insulin Regular, Human) 100 Unit/1 Ml Vial 15 Unit SQ TIDWMEALS Gas-X (Simethicone) 125 Mg Tab.chew 250 Mg PO PRN BID PRN Ranitidine Hcl 150 Mg Tablet 150 Mg PO BID Miralax (Polyethylene Glycol 3350) 17 Gm Powd.pack 1 Pkt PO PRN DAILY PRN Lisinopril 40 Mg Tablet 40 Mg PO DAILY Levothyroxine Sodium 75 Mcg Tablet 75 Mcg PO DAILYAC Lasix (Furosemide) 40 Mg Tablet 45 Mg PO DAILY Cymbalta (Duloxetine Hcl) 60 Mg Capsule.dr 60 Mg PO DAILY Dulcolax (Bisacodyl) 5 Mg Tablet.dr 10 Mg PO PRN BID PRN Tylenol (Acetaminophen) 325 Mg Tablet 650 Mg PO PRN TID PRN Docusate Sodium 100 Mg Capsule 200 Mg PO BID [place] (Ciclesonide) 6.1 Gm Hfa.aer.ad 6.1 Gm IH BID Cetirizine Hcl 10 Mg Tablet 10 Mg PO HS Atorvastatin Calcium 20 Mg Tablet 20 Mg PO HS Aspirin 81 Mg Tab.chew 81 Mg PO DAILY Allopurinol 100 Mg Tablet 100 Mg PO DAILY Allergies Allergies: Coded Allergies: No Known Drug Allergies (Unverified , 04/16/19) Vitals VITALS Vital Signs Date Time Temp Pulse Resp B/P (MAP) Pulse Ox O2 Delivery O2 Flow Rate FiO2 04/17/19 11:00 98.8 103 11 176/89 (118) 96 Nasal Cannula 2.0 98.8 Labs Labs Laboratory Tests Test 04/16/19 17:56 04/16/19 19:45 04/17/19 02:31 04/17/19 05:40 White Blood Count 17.1 x10^3/uL (4.0-11.0) 16.7 x10^3/uL (4.0-11.0) Red Blood Count 5.30 x10^6/uL (4.30-5.70) 4.61 x10^6/uL (4.30-5.70) Hemoglobin 15.7 g/dL (13.0-17.5) 13.6 g/dL (13.0-17.5) Hematocrit 46.7 % (39.0-53.0) 40.3 % (39.0-53.0) Mean Corpuscular Volume 88 fL (79-100) 87 fL (79-100) Mean Corpuscular Hemoglobin 30 pg (25-35) 29 pg (25-35) Mean Corpuscular Hemoglobin Concent 34 g/dL (31-37) 34 g/dL (31-37) Red Cell Distribution Width 14.4 % (11.5-14.5) 14.5 % (11.5-14.5) Platelet Count 289 x10^3/uL (140-400) 211 x10^3/uL (140-400) Neutrophils (%) (Auto) 91 % (31-73) 88 % (31-73) Lymphocytes (%) (Auto) 5 % (24-48) 5 % (24-48) Monocytes (%) (Auto) 4 % (0-9) 6 % (0-9) Eosinophils (%) (Auto) 0 % (0-3) 0 % (0-3) Basophils (%) (Auto) 0 % (0-3) 0 % (0-3) Neutrophils # (Auto) 15.6 x10^3/uL (1.8-7.7) 14.8 x10^3/uL (1.8-7.7) Lymphocytes # (Auto) 0.8 x10^3/uL (1.0-4.8) 0.9 x10^3/uL (1.0-4.8) Monocytes # (Auto) 0.8 x10^3/uL (0.0-1.1) 1.0 x10^3/uL (0.0-1.1) Eosinophils # (Auto) 0.0 x10^3/uL (0.0-0.7) 0.0 x10^3/uL (0.0-0.7) Basophils # (Auto) 0.0 x10^3/uL (0.0-0.2) 0.0 x10^3/uL (0.0-0.2) Segmented Neutrophils % 83 % (35-66) Band Neutrophils % 5 % (0-9) Lymphocytes % 7 % (24-48) Monocytes % 5 % (0-10) Platelet Estimate Adequate (ADEQUATE) Sodium Level 139 mmol/L (136-145) 142 mmol/L (136-145) Potassium Level 3.8 mmol/L (3.5-5.1) 3.7 mmol/L (3.5-5.1) Chloride Level 99 mmol/L (98-107) 105 mmol/L (98-107) Carbon Dioxide Level 25 mmol/L (21-32) 27 mmol/L (21-32) Anion Gap 15 (6-14) 10 (6-14) Blood Urea Nitrogen 36 mg/dL (8-26) 32 mg/dL (8-26) Creatinine 2.5 mg/dL (0.7-1.3) 1.8 mg/dL (0.7-1.3) Estimated GFR (Cockcroft-Gault) 27.0 39.5 BUN/Creatinine Ratio 14 (6-20) Glucose Level 574 mg/dL (70-99) 210 mg/dL (70-99) Calcium Level 8.5 mg/dL (8.5-10.1) 8.3 mg/dL (8.5-10.1) Magnesium Level 1.7 mg/dL (1.8-2.4) Total Bilirubin 1.0 mg/dL (0.2-1.0) Aspartate Amino Transf (AST/SGOT) 20 U/L (15-37) Alanine Aminotransferase (ALT/SGPT) 30 U/L (16-63) Alkaline Phosphatase 133 U/L (46-116) Creatine Kinase 263 U/L (39-308) Creatine Kinase MB (Mass) 5.9 ng/mL (0.0-3.6) Creatine Kinase MB Relative Index 2.2 % (0-4) Troponin I Quantitative 0.048 ng/mL (0.000-0.055) SP-Bav-Z-Type Natriuretic Peptide 1718 pg/mL (0-124) Total Protein 7.5 g/dL (6.4-8.2) Albumin 3.2 g/dL (3.4-5.0) Albumin/Globulin Ratio 0.7 (1.0-1.7) Lipase 1691 U/L (73-393) 801 U/L (73-393) Thyroid Stimulating Hormone (TSH) 1.247 uIU/mL (0.358-3.74) Free Thyroxine 0.99 ng/dL (0.76-1.46) Free Triiodothyronine (T3) pg/mL 1.96 pg/mL (2.18-3.98) Urine Collection Type Unknown Urine Color Yellow Urine Clarity Clear Urine pH 5.0 Urine Specific [place] 1.025 Urine Protein >=300 mg/dL (NEG-TRACE) Urine Glucose (UA) >=1000 mg/dL (NEG) Urine Ketones (Stick) Trace mg/dL (NEG) Urine Blood Moderate (NEG) Urine Nitrite Negative (NEG) Urine Bilirubin Negative (NEG) Urine Urobilinogen Dipstick 0.2 mg/dL (0.2 mg/dL) Urine Leukocyte Esterase Negative (NEG) Urine RBC 0 /HPF (0-2) Urine WBC Occ /HPF (0-4) Urine Squamous Epithelial Cells Mod /LPF Urine Bacteria Few /HPF (0-FEW) Urine Mucus Slight /LPF Urine Opiates Screen Pos (NEG) Urine Methadone Screen Neg (NEG) Urine Barbiturates Neg (NEG) Urine Phencyclidine Screen Neg (NEG) Urine Amphetamine/Methamphetamine Neg (NEG) Urine Benzodiazepines Screen Neg (NEG) Urine Cocaine Screen Neg (NEG) Urine Cannabinoids Screen Neg (NEG) Urine Ethyl Alcohol Neg (NEG) Glucose (Fingerstick) 160 mg/dL (70-99) Test 04/17/19 08:33 Glucose (Fingerstick) 205 mg/dL (70-99) Laboratory Tests Test 04/16/19 17:56 04/16/19 19:45 04/17/19 02:31 04/17/19 05:40 White Blood Count 17.1 x10^3/uL (4.0-11.0) 16.7 x10^3/uL (4.0-11.0) Red Blood Count 5.30 x10^6/uL (4.30-5.70) 4.61 x10^6/uL (4.30-5.70) Hemoglobin 15.7 g/dL (13.0-17.5) 13.6 g/dL (13.0-17.5) Hematocrit 46.7 % (39.0-53.0) 40.3 % (39.0-53.0) Mean Corpuscular Volume 88 fL (79-100) 87 fL (79-100) Mean Corpuscular Hemoglobin 30 pg (25-35) 29 pg (25-35) Mean Corpuscular Hemoglobin Concent 34 g/dL (31-37) 34 g/dL (31-37) Red Cell Distribution Width 14.4 % (11.5-14.5) 14.5 % (11.5-14.5) Platelet Count 289 x10^3/uL (140-400) 211 x10^3/uL (140-400) Neutrophils (%) (Auto) 91 % (31-73) 88 % (31-73) Lymphocytes (%) (Auto) 5 % (24-48) 5 % (24-48) Monocytes (%) (Auto) 4 % (0-9) 6 % (0-9) Eosinophils (%) (Auto) 0 % (0-3) 0 % (0-3) Basophils (%) (Auto) 0 % (0-3) 0 % (0-3) Neutrophils # (Auto) 15.6 x10^3/uL (1.8-7.7) 14.8 x10^3/uL (1.8-7.7) Lymphocytes # (Auto) 0.8 x10^3/uL (1.0-4.8) 0.9 x10^3/uL (1.0-4.8) Monocytes # (Auto) 0.8 x10^3/uL (0.0-1.1) 1.0 x10^3/uL (0.0-1.1) Eosinophils # (Auto) 0.0 x10^3/uL (0.0-0.7) 0.0 x10^3/uL (0.0-0.7) Basophils # (Auto) 0.0 x10^3/uL (0.0-0.2) 0.0 x10^3/uL (0.0-0.2) Segmented Neutrophils % 83 % (35-66) Band Neutrophils % 5 % (0-9) Lymphocytes % 7 % (24-48) Monocytes % 5 % (0-10) Platelet Estimate Adequate (ADEQUATE) Sodium Level 139 mmol/L (136-145) 142 mmol/L (136-145) Potassium Level 3.8 mmol/L (3.5-5.1) 3.7 mmol/L (3.5-5.1) Chloride Level 99 mmol/L (98-107) 105 mmol/L (98-107) Carbon Dioxide Level 25 mmol/L (21-32) 27 mmol/L (21-32) Anion Gap 15 (6-14) 10 (6-14) Blood Urea Nitrogen 36 mg/dL (8-26) 32 mg/dL (8-26) Creatinine 2.5 mg/dL (0.7-1.3) 1.8 mg/dL (0.7-1.3) Estimated GFR (Cockcroft-Gault) 27.0 39.5 BUN/Creatinine Ratio 14 (6-20) Glucose Level 574 mg/dL (70-99) 210 mg/dL (70-99) Calcium Level 8.5 mg/dL (8.5-10.1) 8.3 mg/dL (8.5-10.1) Magnesium Level 1.7 mg/dL (1.8-2.4) Total Bilirubin 1.0 mg/dL (0.2-1.0) Aspartate Amino Transf (AST/SGOT) 20 U/L (15-37) Alanine Aminotransferase (ALT/SGPT) 30 U/L (16-63) Alkaline Phosphatase 133 U/L (46-116) Creatine Kinase 263 U/L (39-308) Creatine Kinase MB (Mass) 5.9 ng/mL (0.0-3.6) Creatine Kinase MB Relative Index 2.2 % (0-4) Troponin I Quantitative 0.048 ng/mL (0.000-0.055) DU-Rpw-G-Type Natriuretic Peptide 1718 pg/mL (0-124) Total Protein 7.5 g/dL (6.4-8.2) Albumin 3.2 g/dL (3.4-5.0) Albumin/Globulin Ratio 0.7 (1.0-1.7) Lipase 1691 U/L (73-393) 801 U/L (73-393) Thyroid Stimulating Hormone (TSH) 1.247 uIU/mL (0.358-3.74) Free Thyroxine 0.99 ng/dL (0.76-1.46) Free Triiodothyronine (T3) pg/mL 1.96 pg/mL (2.18-3.98) Urine Collection Type Unknown Urine Color Yellow Urine Clarity Clear Urine pH 5.0 Urine Specific [place] 1.025 Urine Protein >=300 mg/dL (NEG-TRACE) Urine Glucose (UA) >=1000 mg/dL (NEG) Urine Ketones (Stick) Trace mg/dL (NEG) Urine Blood Moderate (NEG) Urine Nitrite Negative (NEG) Urine Bilirubin Negative (NEG) Urine Urobilinogen Dipstick 0.2 mg/dL (0.2 mg/dL) Urine Leukocyte Esterase Negative (NEG) Urine RBC 0 /HPF (0-2) Urine WBC Occ /HPF (0-4) Urine Squamous Epithelial Cells Mod /LPF Urine Bacteria Few /HPF (0-FEW) Urine Mucus Slight /LPF Urine Opiates Screen Pos (NEG) Urine Methadone Screen Neg (NEG) Urine Barbiturates Neg (NEG) Urine Phencyclidine Screen Neg (NEG) Urine Amphetamine/Methamphetamine Neg (NEG) Urine Benzodiazepines Screen Neg (NEG) Urine Cocaine Screen Neg (NEG) Urine Cannabinoids Screen Neg (NEG) Urine Ethyl Alcohol Neg (NEG) Glucose (Fingerstick) 160 mg/dL (70-99) Test 04/17/19 08:33 Glucose (Fingerstick) 205 mg/dL (70-99) Assessment/Plan Assessment/Plan Pancreatitis- with abnl CT, differential of pancreatic cancer- adenocarcinoma versus mucinous neoplasm, auto-immune disease, and/or residual pseudocyst plan igg4 levels and ca 19-9 levels possible mrcp and/or pancreatic biopsy pending above Full note dictated JOAN VUONG MD Apr 17, 2019 11:51
--- NOTE | 2019-04-17 12:15 | PDOC ---
[employer] PROGRESS NOTE Chief Complaint Chief Complaint Acute Pancreatitis (initial lipase level of 1691, now 801) Abd Pain w/ n/v DM2 HTN History of Present Illness History of Present Illness 04/17/19 Pt seen/examined at bedside DW pt Pt resting and did not have any concerns Vitals/I&O Vitals/I&O: Vital Signs Date Time Temp Pulse Resp B/P (MAP) Pulse Ox O2 Delivery O2 Flow Rate FiO2 04/17/19 11:00 98.8 103 11 176/89 (118) 96 Nasal Cannula 2.0 98.8 I & O 04/16/19 04/16/19 04/17/19 15:00 23:00 07:00 Intake Total 2100 ml 1200 ml Output Total 800 ml Balance 2100 ml 400 ml Physical Exam General: Alert, Oriented X3, Cooperative, No acute distress Heart: Regular rate, Normal S1, Normal S2 Lungs: Clear Abdomen: Soft, Other (TTP) Extremities: No clubbing, No cyanosis, No edema, Normal pulses, No tenderness/swelling Skin: No rashes, No breakdown, No significant lesion Labs Labs: Laboratory Tests Test 04/16/19 17:56 04/16/19 19:45 04/17/19 02:31 04/17/19 05:40 White Blood Count 17.1 x10^3/uL (4.0-11.0) 16.7 x10^3/uL (4.0-11.0) Red Blood Count 5.30 x10^6/uL (4.30-5.70) 4.61 x10^6/uL (4.30-5.70) Hemoglobin 15.7 g/dL (13.0-17.5) 13.6 g/dL (13.0-17.5) Hematocrit 46.7 % (39.0-53.0) 40.3 % (39.0-53.0) Mean Corpuscular Volume 88 fL (79-100) 87 fL (79-100) Mean Corpuscular Hemoglobin 30 pg (25-35) 29 pg (25-35) Mean Corpuscular Hemoglobin Concent 34 g/dL (31-37) 34 g/dL (31-37) Red Cell Distribution Width 14.4 % (11.5-14.5) 14.5 % (11.5-14.5) Platelet Count 289 x10^3/uL (140-400) 211 x10^3/uL (140-400) Neutrophils (%) (Auto) 91 % (31-73) 88 % (31-73) Lymphocytes (%) (Auto) 5 % (24-48) 5 % (24-48) Monocytes (%) (Auto) 4 % (0-9) 6 % (0-9) Eosinophils (%) (Auto) 0 % (0-3) 0 % (0-3) Basophils (%) (Auto) 0 % (0-3) 0 % (0-3) Neutrophils # (Auto) 15.6 x10^3/uL (1.8-7.7) 14.8 x10^3/uL (1.8-7.7) Lymphocytes # (Auto) 0.8 x10^3/uL (1.0-4.8) 0.9 x10^3/uL (1.0-4.8) Monocytes # (Auto) 0.8 x10^3/uL (0.0-1.1) 1.0 x10^3/uL (0.0-1.1) Eosinophils # (Auto) 0.0 x10^3/uL (0.0-0.7) 0.0 x10^3/uL (0.0-0.7) Basophils # (Auto) 0.0 x10^3/uL (0.0-0.2) 0.0 x10^3/uL (0.0-0.2) Segmented Neutrophils % 83 % (35-66) Band Neutrophils % 5 % (0-9) Lymphocytes % 7 % (24-48) Monocytes % 5 % (0-10) Platelet Estimate Adequate (ADEQUATE) Sodium Level 139 mmol/L (136-145) 142 mmol/L (136-145) Potassium Level 3.8 mmol/L (3.5-5.1) 3.7 mmol/L (3.5-5.1) Chloride Level 99 mmol/L (98-107) 105 mmol/L (98-107) Carbon Dioxide Level 25 mmol/L (21-32) 27 mmol/L (21-32) Anion Gap 15 (6-14) 10 (6-14) Blood Urea Nitrogen 36 mg/dL (8-26) 32 mg/dL (8-26) Creatinine 2.5 mg/dL (0.7-1.3) 1.8 mg/dL (0.7-1.3) Estimated GFR (Cockcroft-Gault) 27.0 39.5 BUN/Creatinine Ratio 14 (6-20) Glucose Level 574 mg/dL (70-99) 210 mg/dL (70-99) Calcium Level 8.5 mg/dL (8.5-10.1) 8.3 mg/dL (8.5-10.1) Magnesium Level 1.7 mg/dL (1.8-2.4) Total Bilirubin 1.0 mg/dL (0.2-1.0) Aspartate Amino Transf (AST/SGOT) 20 U/L (15-37) Alanine Aminotransferase (ALT/SGPT) 30 U/L (16-63) Alkaline Phosphatase 133 U/L (46-116) Creatine Kinase 263 U/L (39-308) Creatine Kinase MB (Mass) 5.9 ng/mL (0.0-3.6) Creatine Kinase MB Relative Index 2.2 % (0-4) Troponin I Quantitative 0.048 ng/mL (0.000-0.055) DT-Ifa-Z-Type Natriuretic Peptide 1718 pg/mL (0-124) Total Protein 7.5 g/dL (6.4-8.2) Albumin 3.2 g/dL (3.4-5.0) Albumin/Globulin Ratio 0.7 (1.0-1.7) Lipase 1691 U/L (73-393) 801 U/L (73-393) Thyroid Stimulating Hormone (TSH) 1.247 uIU/mL (0.358-3.74) Free Thyroxine 0.99 ng/dL (0.76-1.46) Free Triiodothyronine (T3) pg/mL 1.96 pg/mL (2.18-3.98) Urine Collection Type Unknown Urine Color Yellow Urine Clarity Clear Urine pH 5.0 Urine Specific [place] 1.025 Urine Protein >=300 mg/dL (NEG-TRACE) Urine Glucose (UA) >=1000 mg/dL (NEG) Urine Ketones (Stick) Trace mg/dL (NEG) Urine Blood Moderate (NEG) Urine Nitrite Negative (NEG) Urine Bilirubin Negative (NEG) Urine Urobilinogen Dipstick 0.2 mg/dL (0.2 mg/dL) Urine Leukocyte Esterase Negative (NEG) Urine RBC 0 /HPF (0-2) Urine WBC Occ /HPF (0-4) Urine Squamous Epithelial Cells Mod /LPF Urine Bacteria Few /HPF (0-FEW) Urine Mucus Slight /LPF Urine Opiates Screen Pos (NEG) Urine Methadone Screen Neg (NEG) Urine Barbiturates Neg (NEG) Urine Phencyclidine Screen Neg (NEG) Urine Amphetamine/Methamphetamine Neg (NEG) Urine Benzodiazepines Screen Neg (NEG) Urine Cocaine Screen Neg (NEG) Urine Cannabinoids Screen Neg (NEG) Urine Ethyl Alcohol Neg (NEG) Glucose (Fingerstick) 160 mg/dL (70-99) Test 04/17/19 08:33 04/17/19 11:55 Glucose (Fingerstick) 205 mg/dL (70-99) 230 mg/dL (70-99) Review of Systems Review of Systems: No CO pain CO being tired Assessment and Plan Assessmemt and Plan Assessment Acute Pancreatitis (initial lipase level of 1691, now 801) Abd Pain w/ n/v DM2 HTN Plan IV fluids IV pain meds PRN Ciprofloxacin Trend lipase DVT prophylaxis Home meds PT/OT Labs Comment Review of Relevant I have reviewed the following items jael (where applicable) has been applied. Medications: Current Medications Medications (Trade) Dose Ordered Sig/Tigist Route PRN Reason Start Time Stop Time Status Last Admin Dose Admin Morphine Sulfate (Morphine Sulfate) 4 mg PRN Q15MIN PRN IV/SQ PAIN GREATER THAN 3/10 04/16/19 18:15 04/17/19 18:14 04/16/19 18:36 Sodium Chloride 1,000 ml @ 1,000 mls/hr 1X ONCE IV 04/16/19 18:15 04/16/19 19:14 DC 04/16/19 18:36 Famotidine (Pepcid Vial) 20 mg 1X ONCE IVP 04/16/19 18:15 04/16/19 18:16 DC 04/16/19 18:36 Ondansetron HCl (Zofran) 4 mg 1X ONCE IV 04/16/19 18:15 04/16/19 18:16 DC 04/16/19 18:36 Sodium Chloride 1,000 ml @ 1,000 mls/hr 1X ONCE IV 04/16/19 19:15 04/16/19 20:14 DC 04/16/19 19:21 Insulin Human Regular (HumuLIN R VIAL) 8 unit 1X ONCE IV 04/16/19 19:15 04/16/19 19:16 DC 04/16/19 19:21 Sodium Chloride 1,000 ml @ 125 mls/hr Q8H IV 04/16/19 20:30 04/17/19 05:43 Magnesium Sulfate/ Dextrose 100 ml @ 100 mls/hr 1X ONCE IV 04/16/19 20:30 04/16/19 21:29 DC 04/16/19 20:42 Insulin Human Regular (HumuLIN R VIAL) 20 unit 1X ONCE IV 04/16/19 20:30 04/16/19 20:31 DC 04/16/19 21:18 Labetalol HCl (Normodyne Iv Push) 20 mg PRN Q2HR PRN IVP HYPERTENSION 04/16/19 20:30 04/16/19 20:42 Morphine Sulfate (Morphine Sulfate) 4 mg PRN Q2HR PRN IV SEVERE PAIN 7-10 04/16/19 20:45 04/17/19 20:44 04/17/19 05:46 Ciprofloxacin/ Dextrose 200 ml @ 200 mls/hr 1X ONCE IV 04/16/19 21:00 04/16/19 21:59 DC 04/16/19 22:59 Insulin Human Lispro (HumaLOG) 0-9 UNITS TIDWMEALS SQ 04/17/19 08:00 04/17/19 08:55 Furosemide (Lasix) 60 mg DAILY PO 04/17/19 09:00 04/17/19 08:55 Lisinopril (Prinivil) 40 mg DAILY PO 04/17/19 09:00 04/17/19 08:55 Saliva Substitute (Biotene Moisturizing Mouth) 2 spray PRN Q15MIN PRN PO DRY MOUTH 04/16/19 22:45 04/16/19 22:59 KEVIN LOVE III DO Apr 17, 2019 12:14
--- NOTE | 2019-04-17 12:55 | EKG ---
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
[2019-04-17 15:00] VITALS: BP 176/89
[2019-04-17 19:05] VITALS: BP 191/114
[2019-04-17] MEDS: cloNIDine HCL 0.1 MG TABLET PO PRN (20:22)
[2019-04-17] MEDS: ATORVASTATIN CALCIUM 20 MG TABLET PO SCH (20:23)
[2019-04-17] MEDS: HYDROcodone/APAP 5/325MG 1 TAB TABLET PO PRN (20:23)
[2019-04-17] MEDS: FAMOTIDINE 20 MG/2 ML VIAL IVP SCH (20:24)
--- NOTE | 2019-04-17 21:10 | CONS ---
DATE OF CONSULTATION: 04/17/2019 GASTROINTESTINAL CONSULTATION REFERRING PHYSICIAN: Dr. Suh. REASON FOR CONSULTATION: Pancreatic mass or pancreatitis. HISTORY OF PRESENT ILLNESS: A 54-year-old male with past medical history significant for diabetes, obesity, osteoarthritis is admitted to [facility] from the [facility] for abdominal pain, nausea and vomiting, subsequently found to have pancreatitis as well as a multiloculated mass in the distal pancreas. No family history of pancreatic cancer or pancreatitis is encountered. The patient states he has had several attacks in the past, which have been resolved medically by himself, not been a drinker as he has been in assisted, continued issues, consultation is requested. CA 19-9 level is pending. PAST MEDICAL HISTORY: Hypertension, diverticulosis, gout, diabetes, hypothyroidism. MEDICATIONS: Include insulin, Pepcid, clonidine, labetalol, magnesium sulfate. ALLERGIES: None. FAMILY AND SOCIAL HISTORY: Unknown. Lives in correctional facility. REVIEW OF SYSTEMS: Per records. PHYSICAL EXAMINATION: GENERAL: Reveals an obese male who is alert, cooperative, in no acute distress. VITAL SIGNS: Temperature 98, pulse 130, respiratory rate is 11, blood pressure 176/89. HEENT: Reveals normocephalic, atraumatic head. Pupils and extraocular muscles are not tested. Sclerae anicteric. NECK: Supple. LUNGS: Clear. CARDIOVASCULAR: Reveals an S1, S2 without S3, S4 or appreciable murmur. ABDOMEN: Reveals a soft abdomen, normal bowel sounds, without tenderness to deep palpation. EXTREMITIES: Reveals no cyanosis, clubbing or edema. LABORATORY STUDIES: Hemoglobin is 13.6, hematocrit 40.3, white count 16.7, platelet count is 211,000. Sodium 142, potassium 3.7, chloride 105, bicarb is 10, BUN of 32, creatinine 1.8, glucose is 210, lipase is 801. TSH is 1.247. T4 0.99, free T3 is 1.96. CT scan reveals lobulated appearance of the pancreatic tail, fatty atrophy of the head. Findings are consistent with either malignancy or autoimmune pancreatitis. CA 19-9 99 levels and IgG 4 levels is pending. IMPRESSION: Acute pancreatitis. Differential includes autoimmune disease, malignancy. We will, therefore, recommend serologies, interval MRCP and/or biopsy may be indicated. JOAN VUONG MD DR: Emily JOB#: [id number] / [id number]
[2019-04-17 23:00] VITALS: BP 162/90
[2019-04-18] VITALS (8 sets, daily range): BP systolic 173–207; BP diastolic 85–113
[2019-04-18 04:33] LABS: BASO # 0.1 x10^3/uL (0.0-0.2); BASO % 0 % (0-3); EOS # 0.1 x10^3/uL (0.0-0.7); EOS % 1 % (0-3); HEMATOCRIT 40.1 % (39.0-53.0); HEMOGLOBIN 13.7 g/dL (13.0-17.5); LYMPH # 0.9 x10^3/uL (1.0-4.8); LYMPH % 6 % (24-48); MEAN CORPUSCULAR HEMOGLOBIN 30 pg (25-35); MEAN CORPUSCULAR HGB CONC 34 g/dL (31-37); MEAN CORPUSCULAR VOLUME 88 fL (79-100); MONO # 0.8 x10^3/uL (0.0-1.1); MONO % 6 % (0-9); NEUT # 12.2 x10^3/uL (1.8-7.7); NEUT % 87 % (31-73); PLATELET COUNT 172 x10^3/uL (140-400); RED BLOOD COUNT 4.58 x10^6/uL (4.30-5.70); RED CELL DISTRIBUTION WIDTH 14.2 % (11.5-14.5)
[2019-04-18] MEDS: IV NORMAL SALINE 1000ML BAG 1,000 ML IV SCH ×3 (04:53→21:11)
[2019-04-18] MEDS: HYDROcodone/APAP 5/325MG 1 TAB TABLET PO PRN ×3 (04:54→21:16)
[2019-04-18] MEDS: cloNIDine HCL 0.1 MG TABLET PO PRN ×3 (04:55→21:12)
[2019-04-18 05:00] LABS: CALCIUM 7.9 mg/dL (8.5-10.1); CREATININE 1.5 mg/dL (0.7-1.3); GFR 48.8; POTASSIUM 3.3 mmol/L (3.5-5.1)
[2019-04-18 05:43] LABS: HEMOGLOBIN A1C 7.6 % (4.8-5.6)
[2019-04-18] MEDS: LEVOTHYROXINE 75 MCG TABLET PO SCH (06:28)
[2019-04-18] MEDS: POLYETHYLENE GLYCOL 3350 17 GM PACKET. PO SCH (08:19)
[2019-04-18] MEDS: ASPIRIN 325 MG TABLET PO SCH (08:20)
[2019-04-18] MEDS: FUROSEMIDE 20 MG TABLET PO SCH (08:20)
[2019-04-18] MEDS: DOCUSATE SODIUM 100 MG CAPSULE. PO SCH (08:20)
[2019-04-18] MEDS: DULoxetine HCL 30 MG CAPSULE.DR PO SCH (08:20)
[2019-04-18] MEDS: ALLOPURINOL 100 MG TABLET. PO SCH (08:20)
[2019-04-18] MEDS: LISINOPRIL 20 MG TABLET PO SCH (08:21)
[2019-04-18] MEDS: INSULIN NPH/REG INSULIN 70/30 300 UNITS/3 ML INSULN.PEN. SQ SCH ×2 (08:30→21:00)
[2019-04-18] MEDS: INSULIN LISPRO 300 UNITS/3 ML VIAL. SQ SCH ×6 (08:32→17:00)
--- NOTE | 2019-04-18 12:25 | PDOC ---
[employer] PROGRESS NOTE Chief Complaint Chief Complaint Acute Pancreatitis (initial lipase level of 1691, now 905) Abd Pain w/ n/v DM2 HTN History of Present Illness History of Present Illness 04/18/19 Resting with NAD 04/17/19 Pt seen/examined at bedside DW pt Pt resting and did not have any concerns Vitals/I&O Vitals/I&O: Vital Signs Date Time Temp Pulse Resp B/P (MAP) Pulse Ox O2 Delivery O2 Flow Rate FiO2 04/18/19 11:05 99.0 85 18 173/85 (114) 91 Room Air 99.0 04/18/19 03:00 2.0 I & O 04/17/19 04/17/19 04/18/19 15:00 23:00 07:00 Intake Total 0 ml 1900 ml Output Total 1525 ml 1800 ml 550 ml Balance -1525 ml -1800 ml 1350 ml Physical Exam General: Alert, Oriented X3, Cooperative, No acute distress Heart: Regular rate, Normal S1, Normal S2 Lungs: Clear Abdomen: Soft, Other (TTP) Extremities: No clubbing, No cyanosis, No edema, Normal pulses, No tenderness/swelling Skin: No rashes, No breakdown, No significant lesion Labs Labs: Laboratory Tests Test 04/17/19 16:58 04/17/19 19:56 04/18/19 03:50 04/18/19 07:24 Glucose (Fingerstick) 272 mg/dL (70-99) 256 mg/dL (70-99) 212 mg/dL (70-99) White Blood Count 14.0 x10^3/uL (4.0-11.0) Red Blood Count 4.58 x10^6/uL (4.30-5.70) Hemoglobin 13.7 g/dL (13.0-17.5) Hematocrit 40.1 % (39.0-53.0) Mean Corpuscular Volume 88 fL (79-100) Mean Corpuscular Hemoglobin 30 pg (25-35) Mean Corpuscular Hemoglobin Concent 34 g/dL (31-37) Red Cell Distribution Width 14.2 % (11.5-14.5) Platelet Count 172 x10^3/uL (140-400) Neutrophils (%) (Auto) 87 % (31-73) Lymphocytes (%) (Auto) 6 % (24-48) Monocytes (%) (Auto) 6 % (0-9) Eosinophils (%) (Auto) 1 % (0-3) Basophils (%) (Auto) 0 % (0-3) Neutrophils # (Auto) 12.2 x10^3/uL (1.8-7.7) Lymphocytes # (Auto) 0.9 x10^3/uL (1.0-4.8) Monocytes # (Auto) 0.8 x10^3/uL (0.0-1.1) Eosinophils # (Auto) 0.1 x10^3/uL (0.0-0.7) Basophils # (Auto) 0.1 x10^3/uL (0.0-0.2) Sodium Level 140 mmol/L (136-145) Potassium Level 3.3 mmol/L (3.5-5.1) Chloride Level 104 mmol/L (98-107) Carbon Dioxide Level 27 mmol/L (21-32) Anion Gap 9 (6-14) Blood Urea Nitrogen 22 mg/dL (8-26) Creatinine 1.5 mg/dL (0.7-1.3) Estimated GFR (Cockcroft-Gault) 48.8 Glucose Level 234 mg/dL (70-99) Calcium Level 7.9 mg/dL (8.5-10.1) Lipase 905 U/L (73-393) Review of Systems Review of Systems: Unable to obtain, pt resting with NAD Assessment and Plan Assessmemt and Plan Assessment Acute Pancreatitis (initial lipase level of 1691, now 905) Abd Pain w/ n/v DM2 HTN Plan IV fluids IV pain meds PRN Ciprofloxacin Trend lipase DVT prophylaxis Home meds PT/OT Labs Comment Review of Relevant I have reviewed the following items jael (where applicable) has been applied. Medications: Current Medications Medications (Trade) Dose Ordered Sig/Tigist Route PRN Reason Start Time Stop Time Status Last Admin Dose Admin Insulin Human Isoph/Insulin Regular (HumuLIN 70/30) 85 units QHS SQ 04/17/19 21:00 04/17/19 20:33 Atorvastatin Calcium (Lipitor) 20 mg QHS PO 04/17/19 21:00 04/17/19 20:25 KEVIN LOVE III DO Apr 18, 2019 12:25
--- NOTE | 2019-04-18 12:59 | PDOC ---
[facility] PROGRESS NOTE Reason for Follow-up Pancreatitis Subjective Pain improved slightly Physical Exam Lungs clear CV S1 S2 ABD +hypoactive BS,distnded, +RUQ tenderness Review of Relevant I have reviewed the following items jael (where applicable) has been applied. Labs Laboratory Tests Test 04/16/19 17:56 04/16/19 19:45 04/16/19 23:28 04/17/19 02:31 White Blood Count 17.1 x10^3/uL (4.0-11.0) Red Blood Count 5.30 x10^6/uL (4.30-5.70) Hemoglobin 15.7 g/dL (13.0-17.5) Hematocrit 46.7 % (39.0-53.0) Mean Corpuscular Volume 88 fL (79-100) Mean Corpuscular Hemoglobin 30 pg (25-35) Mean Corpuscular Hemoglobin Concent 34 g/dL (31-37) Red Cell Distribution Width 14.4 % (11.5-14.5) Platelet Count 289 x10^3/uL (140-400) Neutrophils (%) (Auto) 91 % (31-73) Lymphocytes (%) (Auto) 5 % (24-48) Monocytes (%) (Auto) 4 % (0-9) Eosinophils (%) (Auto) 0 % (0-3) Basophils (%) (Auto) 0 % (0-3) Neutrophils # (Auto) 15.6 x10^3/uL (1.8-7.7) Lymphocytes # (Auto) 0.8 x10^3/uL (1.0-4.8) Monocytes # (Auto) 0.8 x10^3/uL (0.0-1.1) Eosinophils # (Auto) 0.0 x10^3/uL (0.0-0.7) Basophils # (Auto) 0.0 x10^3/uL (0.0-0.2) Segmented Neutrophils % 83 % (35-66) Band Neutrophils % 5 % (0-9) Lymphocytes % 7 % (24-48) Monocytes % 5 % (0-10) Platelet Estimate Adequate (ADEQUATE) Sodium Level 139 mmol/L (136-145) Potassium Level 3.8 mmol/L (3.5-5.1) Chloride Level 99 mmol/L (98-107) Carbon Dioxide Level 25 mmol/L (21-32) Anion Gap 15 (6-14) Blood Urea Nitrogen 36 mg/dL (8-26) Creatinine 2.5 mg/dL (0.7-1.3) Estimated GFR (Cockcroft-Gault) 27.0 BUN/Creatinine Ratio 14 (6-20) Glucose Level 574 mg/dL (70-99) Hemoglobin A1c 7.6 % (4.8-5.6) Calcium Level 8.5 mg/dL (8.5-10.1) Magnesium Level 1.7 mg/dL (1.8-2.4) Total Bilirubin 1.0 mg/dL (0.2-1.0) Aspartate Amino Transf (AST/SGOT) 20 U/L (15-37) Alanine Aminotransferase (ALT/SGPT) 30 U/L (16-63) Alkaline Phosphatase 133 U/L (46-116) Creatine Kinase 263 U/L (39-308) Creatine Kinase MB (Mass) 5.9 ng/mL (0.0-3.6) Creatine Kinase MB Relative Index 2.2 % (0-4) Troponin I Quantitative 0.048 ng/mL (0.000-0.055) CC-Lfg-Y-Type Natriuretic Peptide 1718 pg/mL (0-124) Total Protein 7.5 g/dL (6.4-8.2) Albumin 3.2 g/dL (3.4-5.0) Albumin/Globulin Ratio 0.7 (1.0-1.7) Lipase 1691 U/L (73-393) Thyroid Stimulating Hormone (TSH) 1.247 uIU/mL (0.358-3.74) Free Thyroxine 0.99 ng/dL (0.76-1.46) Free Triiodothyronine (T3) pg/mL 1.96 pg/mL (2.18-3.98) Urine Collection Type Unknown Urine Color Yellow Urine Clarity Clear Urine pH 5.0 Urine Specific [place] 1.025 Urine Protein >=300 mg/dL (NEG-TRACE) Urine Glucose (UA) >=1000 mg/dL (NEG) Urine Ketones (Stick) Trace mg/dL (NEG) Urine Blood Moderate (NEG) Urine Nitrite Negative (NEG) Urine Bilirubin Negative (NEG) Urine Urobilinogen Dipstick 0.2 mg/dL (0.2 mg/dL) Urine Leukocyte Esterase Negative (NEG) Urine RBC 0 /HPF (0-2) Urine WBC Occ /HPF (0-4) Urine Squamous Epithelial Cells Mod /LPF Urine Bacteria Few /HPF (0-FEW) Urine Mucus Slight /LPF Urine Opiates Screen Pos (NEG) Urine Methadone Screen Neg (NEG) Urine Barbiturates Neg (NEG) Urine Phencyclidine Screen Neg (NEG) Urine Amphetamine/Methamphetamine Neg (NEG) Urine Benzodiazepines Screen Neg (NEG) Urine Cocaine Screen Neg (NEG) Urine Cannabinoids Screen Neg (NEG) Urine Ethyl Alcohol Neg (NEG) Nasal Screen MRSA (PCR) Positive (Negative) Glucose (Fingerstick) 160 mg/dL (70-99) Test 04/17/19 05:40 04/17/19 08:33 04/17/19 11:55 04/17/19 16:58 White Blood Count 16.7 x10^3/uL (4.0-11.0) Red Blood Count 4.61 x10^6/uL (4.30-5.70) Hemoglobin 13.6 g/dL (13.0-17.5) Hematocrit 40.3 % (39.0-53.0) Mean Corpuscular Volume 87 fL (79-100) Mean Corpuscular Hemoglobin 29 pg (25-35) Mean Corpuscular Hemoglobin Concent 34 g/dL (31-37) Red Cell Distribution Width 14.5 % (11.5-14.5) Platelet Count 211 x10^3/uL (140-400) Neutrophils (%) (Auto) 88 % (31-73) Lymphocytes (%) (Auto) 5 % (24-48) Monocytes (%) (Auto) 6 % (0-9) Eosinophils (%) (Auto) 0 % (0-3) Basophils (%) (Auto) 0 % (0-3) Neutrophils # (Auto) 14.8 x10^3/uL (1.8-7.7) Lymphocytes # (Auto) 0.9 x10^3/uL (1.0-4.8) Monocytes # (Auto) 1.0 x10^3/uL (0.0-1.1) Eosinophils # (Auto) 0.0 x10^3/uL (0.0-0.7) Basophils # (Auto) 0.0 x10^3/uL (0.0-0.2) Sodium Level 142 mmol/L (136-145) Potassium Level 3.7 mmol/L (3.5-5.1) Chloride Level 105 mmol/L (98-107) Carbon Dioxide Level 27 mmol/L (21-32) Anion Gap 10 (6-14) Blood Urea Nitrogen 32 mg/dL (8-26) Creatinine 1.8 mg/dL (0.7-1.3) Estimated GFR (Cockcroft-Gault) 39.5 Glucose Level 210 mg/dL (70-99) Calcium Level 8.3 mg/dL (8.5-10.1) Lipase 801 U/L (73-393) Glucose (Fingerstick) 205 mg/dL (70-99) 230 mg/dL (70-99) 272 mg/dL (70-99) Test 04/17/19 19:56 04/18/19 03:50 04/18/19 07:24 Glucose (Fingerstick) 256 mg/dL (70-99) 212 mg/dL (70-99) White Blood Count 14.0 x10^3/uL (4.0-11.0) Red Blood Count 4.58 x10^6/uL (4.30-5.70) Hemoglobin 13.7 g/dL (13.0-17.5) Hematocrit 40.1 % (39.0-53.0) Mean Corpuscular Volume 88 fL (79-100) Mean Corpuscular Hemoglobin 30 pg (25-35) Mean Corpuscular Hemoglobin Concent 34 g/dL (31-37) Red Cell Distribution Width 14.2 % (11.5-14.5) Platelet Count 172 x10^3/uL (140-400) Neutrophils (%) (Auto) 87 % (31-73) Lymphocytes (%) (Auto) 6 % (24-48) Monocytes (%) (Auto) 6 % (0-9) Eosinophils (%) (Auto) 1 % (0-3) Basophils (%) (Auto) 0 % (0-3) Neutrophils # (Auto) 12.2 x10^3/uL (1.8-7.7) Lymphocytes # (Auto) 0.9 x10^3/uL (1.0-4.8) Monocytes # (Auto) 0.8 x10^3/uL (0.0-1.1) Eosinophils # (Auto) 0.1 x10^3/uL (0.0-0.7) Basophils # (Auto) 0.1 x10^3/uL (0.0-0.2) Sodium Level 140 mmol/L (136-145) Potassium Level 3.3 mmol/L (3.5-5.1) Chloride Level 104 mmol/L (98-107) Carbon Dioxide Level 27 mmol/L (21-32) Anion Gap 9 (6-14) Blood Urea Nitrogen 22 mg/dL (8-26) Creatinine 1.5 mg/dL (0.7-1.3) Estimated GFR (Cockcroft-Gault) 48.8 Glucose Level 234 mg/dL (70-99) Calcium Level 7.9 mg/dL (8.5-10.1) Lipase 905 U/L (73-393) Laboratory Tests Test 04/17/19 16:58 04/17/19 19:56 04/18/19 03:50 04/18/19 07:24 Glucose (Fingerstick) 272 mg/dL (70-99) 256 mg/dL (70-99) 212 mg/dL (70-99) White Blood Count 14.0 x10^3/uL (4.0-11.0) Red Blood Count 4.58 x10^6/uL (4.30-5.70) Hemoglobin 13.7 g/dL (13.0-17.5) Hematocrit 40.1 % (39.0-53.0) Mean Corpuscular Volume 88 fL (79-100) Mean Corpuscular Hemoglobin 30 pg (25-35) Mean Corpuscular Hemoglobin Concent 34 g/dL (31-37) Red Cell Distribution Width 14.2 % (11.5-14.5) Platelet Count 172 x10^3/uL (140-400) Neutrophils (%) (Auto) 87 % (31-73) Lymphocytes (%) (Auto) 6 % (24-48) Monocytes (%) (Auto) 6 % (0-9) Eosinophils (%) (Auto) 1 % (0-3) Basophils (%) (Auto) 0 % (0-3) Neutrophils # (Auto) 12.2 x10^3/uL (1.8-7.7) Lymphocytes # (Auto) 0.9 x10^3/uL (1.0-4.8) Monocytes # (Auto) 0.8 x10^3/uL (0.0-1.1) Eosinophils # (Auto) 0.1 x10^3/uL (0.0-0.7) Basophils # (Auto) 0.1 x10^3/uL (0.0-0.2) Sodium Level 140 mmol/L (136-145) Potassium Level 3.3 mmol/L (3.5-5.1) Chloride Level 104 mmol/L (98-107) Carbon Dioxide Level 27 mmol/L (21-32) Anion Gap 9 (6-14) Blood Urea Nitrogen 22 mg/dL (8-26) Creatinine 1.5 mg/dL (0.7-1.3) Estimated GFR (Cockcroft-Gault) 48.8 Glucose Level 234 mg/dL (70-99) Calcium Level 7.9 mg/dL (8.5-10.1) Lipase 905 U/L (73-393) Medications Current Medications Morphine Sulfate (Morphine Sulfate) 4 mg PRN Q15MIN PRN IV/SQ PAIN GREATER THAN 3/10 Last administered on 04/16/19 18:36; Start 04/16/19 at 18:15; Stop 04/17/19 at 18:14; Status DC Sodium Chloride 1,000 ml @ 1,000 mls/hr 1X ONCE IV Last administered on 04/16/19at 18:36; Start 04/16/19 at 18:15; Stop 04/16/19 at 19:14; Status DC Famotidine (Pepcid Vial) 20 mg 1X ONCE IVP Last administered on 04/16/19 18:36; Start 04/16/19 at 18:15; Stop 04/16/19 at 18:16; Status DC Ondansetron HCl (Zofran) 4 mg 1X ONCE IV Last administered on 04/16/19at 18:36; Start 04/16/19 at 18:15; Stop 04/16/19 at 18:16; Status DC Sodium Chloride 1,000 ml @ 1,000 mls/hr 1X ONCE IV Last administered on 04/16/19at 19:21; Start 04/16/19 at 19:15; Stop 04/16/19 at 20:14; Status DC Insulin Human Regular (HumuLIN R VIAL) 8 unit 1X ONCE IV Last administered on 04/16/19 19:21; Start 04/16/19 at 19:15; Stop 04/16/19 at 19:16; Status DC Sodium Chloride 1,000 ml @ 125 mls/hr Q8H IV Last administered on 04/18/19 12:47; Start 04/16/19 at 20:30 Magnesium Sulfate/ Dextrose 100 ml @ 100 mls/hr 1X ONCE IV Last administered on 04/16/19at 20:42; Start 04/16/19 at 20:30; Stop 04/16/19 at 21:29; Status DC Insulin Human Regular (HumuLIN R VIAL) 20 unit 1X ONCE IV Last administered on 04/16/19 21:18; Start 04/16/19 at 20:30; Stop 04/16/19 at 20:31; Status DC Labetalol HCl (Normodyne Iv Push) 20 mg PRN Q2HR PRN IVP HYPERTENSION Last administered on 04/16/19at 20:42; Start 04/16/19 at 20:30 Clonidine HCl (Catapres) 0.1 mg PRN Q1HR PRN PO HYPERTENSION Last administered on 04/18/19 06:29; Start 04/16/19 at 20:30 Diphenhydramine HCl (Benadryl) 25 mg PRN QHS PRN IVP sleep; Start 04/16/19 at 20:30 Fentanyl Citrate (Fentanyl 2ml Vial) 50 mcg PRN Q2HR PRN IV PAIN; Start 04/16/19 at 20:30 Famotidine (Pepcid Vial) 20 mg QHS IVP Last administered on 04/17/19at 20:25; S tart 04/16/19 at 21:00 Ondansetron HCl (Zofran) 4 mg PRN Q8HRS PRN IV NAUSEA/VOMITING 1ST CHOICE; Start 04/16/19 at 20:45; Stop 04/17/19 at 20:44; Status DC Morphine Sulfate (Morphine Sulfate) 4 mg PRN Q2HR PRN IV SEVERE PAIN 7-10 Last administered on 04/17/19at 05:46; Start 04/16/19 at 20:45; Stop 04/17/19 at 20:44; Status DC Ciprofloxacin/ Dextrose 200 ml @ 200 mls/hr 1X ONCE IV Last administered on 04/16/19at 22:59; Start 04/16/19 at 21:00; Stop 04/16/19 at 21:59; Status DC Sodium Chloride 1,000 ml @ 75 mls/hr 1X ONCE IV ; Start 04/16/19 at 20:45; Stop 04/17/19 at 10:04; Status DC Allopurinol (Zyloprim) 100 mg DAILY PO Last administered on 04/18/19 08:33; Start 04/17/19 at 09:00 Insulin Human Isoph/Insulin Regular (HumuLIN 70/30) 85 units QHS SQ Last administered on 04/17/19at 20:33; Start 04/17/19 at 21:00 Insulin Human Isoph/Insulin Regular (HumuLIN 70/30) 55 units DAILY SQ Last administered on 04/18/19at 08:33; Start 04/17/19 at 09:00 Insulin Human Lispro (HumaLOG) 0-9 UNITS TIDWMEALS SQ Last administered on 04/18/19at 08:33; Start 04/17/19 at 08:00 Dextrose (Dextrose 50%-Water Syringe) 12.5 gm PRN Q15MIN PRN IV SEE COMMENTS; Start 04/16/19 at 22:15 Dextrose 250 ml PRN Q15MIN PRN IV SEE COMMENTS; Start 04/16/19 at 22:15 Insulin Human Lispro (HumaLOG) 15 units TIDWMEALS SQ Last administered on 04/18/19at 12:47; Start 04/17/19 at 08:00 Atorvastatin Calcium (Lipitor) 20 mg QHS PO Last administered on 04/17/19at 20:25; Start 04/17/19 at 21:00 Docusate Sodium (Colace) 100 mg DAILY PO Last administered on 04/18/19 08:33; Start 04/17/19 at 09:00 Duloxetine HCl (Cymbalta) 60 mg DAILY PO Last administered on 04/18/19 08:33; Start 04/17/19 at 09:00 Acetaminophen/ Hydrocodone Bitart (Lortab 5/325) 1 tab PRN Q4HRS PRN PO MODERATE PAIN 4-6 Last administered on 04/18/19 04:56; Start 04/16/19 at 22:15 Furosemide (Lasix) 60 mg DAILY PO Last administered on 04/18/19 08:33; Start 04/17/19 at 09:00 Levothyroxine Sodium (Synthroid) 75 mcg DAILY06 PO Last administered on 04/18/19 06:29; Start 04/17/19 at 06:00 Lisinopril (Prinivil) 40 mg DAILY PO Last administered on 04/18/19 08:33; Start 04/17/19 at 09:00 Polyethylene Glycol (miraLAX PACKET) 17 gm DAILY PO Last administered on 04/18/19 08:33; Start 04/17/19 at 09:00 Ergocalciferol (Vitamin D2) 50,000 unit WEEKLY PO ; Start 04/23/19 at 09:00 Aspirin (Estella Aspirin) 325 mg DAILYWBKFT PO Last administered on 04/18/19 08:33; Start 04/17/19 at 08:00 Magnesium Hydroxide (Milk Of Magnesia) 2,400 mg PRN DAILY PRN PO CONSTIPATION 1ST CHOICE; Start 04/16/19 at 22:15 Saliva Substitute (Biotene Moisturizing Mouth) 2 spray PRN Q15MIN PRN PO DRY MOUTH Last administered on 04/16/19at 22:59; Start 04/16/19 at 22:45 Active Scripts Active Reported Proair Hfa Inhaler (Albuterol Sulfate) 8.5 Gm Hfa.aer.ad 1 Puff INH PRN DAILY PRN Vitamin D2 (Ergocalciferol (Vitamin D2)) 50,000 Unit Capsule 50,000 Unit PO WEEKLY Humulin 70/30 Kwikpen (Hum Insulin Nph/Reg Insulin Hm) 100 Unit/1 Ml Insuln.pen 55 Unit SQ DAILYWSUP Humulin 70/30 Kwikpen (Hum Insulin Nph/Reg Insulin Hm) 100 Unit/1 Ml Insuln.pen 85 Unit SQ DAILYWBKFT Humulin R (Insulin Regular, Human) 100 Unit/1 Ml Vial 15 Unit SQ TIDWMEALS Gas-X (Simethicone) 125 Mg Tab.chew 250 Mg PO PRN BID PRN Ranitidine Hcl 150 Mg Tablet 150 Mg PO BID Miralax (Polyethylene Glycol 3350) 17 Gm Powd.pack 1 Pkt PO PRN DAILY PRN Lisinopril 40 Mg Tablet 40 Mg PO DAILY Levothyroxine Sodium 75 Mcg Tablet 75 Mcg PO DAILYAC Lasix (Furosemide) 40 Mg Tablet 45 Mg PO DAILY Cymbalta (Duloxetine Hcl) 60 Mg Capsule.dr 60 Mg PO DAILY Dulcolax (Bisacodyl) 5 Mg Tablet.dr 10 Mg PO PRN BID PRN Tylenol (Acetaminophen) 325 Mg Tablet 650 Mg PO PRN TID PRN Docusate Sodium 100 Mg Capsule 200 Mg PO BID [place] (Ciclesonide) 6.1 Gm Hfa.aer.ad 6.1 Gm IH BID Cetirizine Hcl 10 Mg Tablet 10 Mg PO HS Atorvastatin Calcium 20 Mg Tablet 20 Mg PO HS Aspirin 81 Mg Tab.chew 81 Mg PO DAILY Allopurinol 100 Mg Tablet 100 Mg PO DAILY Vitals/I & O Vital Sign - Last 24 Hours 04/17/19 04/17/19 04/17/19 04/17/19 15:00 19:05 20:02 20:25 Temp 98.4 98.3 98.4 98.3 Pulse 106 99 99 Resp 18 20 B/P (MAP) 176/89 (118) 191/114 (139) 191/114 Pulse Ox 97 92 O2 Delivery Nasal Cannula Room Air Room Air O2 Flow Rate 2.0 04/17/19 04/17/19 04/17/19 04/18/19 20:25 21:28 23:00 03:00 Temp 98.9 98.9 98.9 98.9 Pulse 89 87 Resp 18 18 20 18 B/P (MAP) 162/90 (114) 197/108 (137) Pulse Ox 97 97 96 94 O2 Delivery Room Air Room Air Room Air Room Air O2 Flow Rate 2.0 2.0 04/18/19 04/18/19 04/18/19 04/18/19 04:30 04:56 04:56 06:15 Pulse 87 87 85 Resp 18 B/P (MAP) 185/113 (137) 185/113 179/108 (131) Pulse Ox 94 O2 Delivery Room Air 04/18/19 04/18/19 04/18/19 04/18/19 06:16 06:29 07:22 08:00 Temp 98.5 98.5 Pulse 86 84 Resp 18 16 B/P (MAP) 183/112 190/98 (128) Pulse Ox 94 95 O2 Delivery Room Air Room Air Room Air 04/18/19 04/18/19 08:33 11:05 Temp 99.0 99.0 Pulse 84 85 Resp 18 B/P (MAP) 190/98 173/85 (114) Pulse Ox 91 O2 Delivery Room Air Intake and Output 04/17/19 04/17/19 04/18/19 15:00 23:00 07:00 Intake Total 0 ml 1900 ml Output Total 1525 ml 1800 ml 550 ml Balance -1525 ml -1800 ml 1350 ml Problem List Pancreatitis- with cystic tail lesion, await CA19-9 level and IGG4 titers, MRCp and/or EUS with FNA may be needed for confirmatory diagnosis, CPM JOAN VUONG MD Apr 18, 2019 12:59
[2019-04-18] MEDS ORDERED: amLODIPine BESYLATE 10 MG TABLET PO ONE (20:45)
[2019-04-18] MEDS: ATORVASTATIN CALCIUM 20 MG TABLET PO SCH (21:11)
[2019-04-18] MEDS: FAMOTIDINE 20 MG/2 ML VIAL IVP SCH (21:12)
[2019-04-19 03:00] VITALS: BP 194/102
[2019-04-19] MEDS: cloNIDine HCL 0.1 MG TABLET PO PRN ×3 (03:08→06:11)
[2019-04-19 04:25] LABS: BASO % 0 % (0-3); EOS # 0.2 x10^3/uL (0.0-0.7); EOS % 2 % (0-3); HEMATOCRIT 38.1 % (39.0-53.0); HEMOGLOBIN 13.2 g/dL (13.0-17.5); LYMPH # 0.9 x10^3/uL (1.0-4.8); LYMPH % 8 % (24-48); MEAN CORPUSCULAR HEMOGLOBIN 30 pg (25-35); MEAN CORPUSCULAR HGB CONC 35 g/dL (31-37); MEAN CORPUSCULAR VOLUME 87 fL (79-100); MONO # 0.6 x10^3/uL (0.0-1.1); MONO % 5 % (0-9); NEUT # 9.7 x10^3/uL (1.8-7.7); NEUT % 84 % (31-73); PLATELET COUNT 168 x10^3/uL (140-400); RED BLOOD COUNT 4.39 x10^6/uL (4.30-5.70); RED CELL DISTRIBUTION WIDTH 13.8 % (11.5-14.5); WHITE BLOOD COUNT 11.6 x10^3/uL (4.0-11.0)
[2019-04-19] MEDS: IV NORMAL SALINE 1000ML BAG 1,000 ML IV SCH ×3 (04:45→21:34)
[2019-04-19 05:12] LABS: CALCIUM 8.2 mg/dL (8.5-10.1); CREATININE 1.3 mg/dL (0.7-1.3); GFR 57.5
[2019-04-19] MEDS: LEVOTHYROXINE 75 MCG TABLET PO SCH (06:10)
[2019-04-19 07:00] VITALS: BP 164/76
[2019-04-19] MEDS: INSULIN LISPRO 300 UNITS/3 ML VIAL. SQ SCH ×6 (08:00→17:52)
--- NOTE | 2019-04-19 10:27 | NUR ---
IP: Pt is mrsa screen + requiring contact precautions.
[2019-04-19 10:54] VITALS: BP 158/86
[2019-04-19] MEDS: ALLOPURINOL 100 MG TABLET. PO SCH (11:39)
[2019-04-19] MEDS: FUROSEMIDE 20 MG TABLET PO SCH (11:39)
[2019-04-19] MEDS: DULoxetine HCL 30 MG CAPSULE.DR PO SCH (11:39)
[2019-04-19] MEDS: DOCUSATE SODIUM 100 MG CAPSULE. PO SCH (11:39)
[2019-04-19] MEDS: LISINOPRIL 20 MG TABLET PO SCH (11:39)
[2019-04-19] MEDS: ASPIRIN 325 MG TABLET PO SCH (11:40)
[2019-04-19] MEDS: amLODIPine BESYLATE 5 MG TABLET PO SCH (11:40)
[2019-04-19] MEDS: POLYETHYLENE GLYCOL 3350 17 GM PACKET. PO SCH (11:40)
--- NOTE | 2019-04-19 11:44 | PDOC ---
Subjective: Subjective: Pain is better and abd seems softer and less bloated. Tolerating ice chips and sips of water, would like some tea. Not sure when he last stooled. Objective: Objective: D/w nurse earlier - okay for pills. IgG4 and CA19-9 pending. Got Lortab last night. Vital Signs: Vital Signs Date Time Temp Pulse Resp B/P (MAP) Pulse Ox O2 Delivery O2 Flow Rate FiO2 04/19/19 10:54 97.8 75 18 158/86 (110) 96 Room Air 97.8 04/19/19 03:00 2.0 Labs: Laboratory Tests Test 04/18/19 15:08 04/18/19 15:31 04/18/19 17:01 04/18/19 20:53 Glucose (Fingerstick) 54 mg/dL 83 mg/dL 82 mg/dL 126 mg/dL Test 04/19/19 03:20 04/19/19 07:37 04/19/19 11:26 White Blood Count 11.6 x10^3/uL Red Blood Count 4.39 x10^6/uL Hemoglobin 13.2 g/dL Hematocrit 38.1 % Mean Corpuscular Volume 87 fL Mean Corpuscular Hemoglobin 30 pg Mean Corpuscular Hemoglobin Concent 35 g/dL Red Cell Distribution Width 13.8 % Platelet Count 168 x10^3/uL Neutrophils (%) (Auto) 84 % Lymphocytes (%) (Auto) 8 % Monocytes (%) (Auto) 5 % Eosinophils (%) (Auto) 2 % Basophils (%) (Auto) 0 % Neutrophils # (Auto) 9.7 x10^3/uL Lymphocytes # (Auto) 0.9 x10^3/uL Monocytes # (Auto) 0.6 x10^3/uL Eosinophils # (Auto) 0.2 x10^3/uL Basophils # (Auto) 0.0 x10^3/uL Sodium Level 137 mmol/L Potassium Level 3.0 mmol/L Chloride Level 100 mmol/L Carbon Dioxide Level 25 mmol/L Anion Gap 12 Blood Urea Nitrogen 17 mg/dL Creatinine 1.3 mg/dL Estimated GFR (Cockcroft-Gault) 57.5 Glucose Level 142 mg/dL Calcium Level 8.2 mg/dL Lipase 751 U/L Glucose (Fingerstick) 161 mg/dL 198 mg/dL Imaging: CT A/P w/o contrast 04/16 IMPRESSION: 1. Extensive Inflammatory changes extending from the duodenum down into the right lower quadrant mesentery and involving the pancreatic head as well as the hepatic flexure of the colon. Origin of findings is difficult to ascertain and possible differential considerations include colitis, duodenitis, and/or pancreatitis. 2. Lobulated appearance of the pancreatic tail with fatty atrophy of the pancreatic head and neck. Findings are abnormal possible differential consi derations include pancreatic malignancy. Autoimmune pancreatitis is also considered. Recommend correlation with IgG4 levels. Further evaluation with MRI MRCP with contrast is recommended after resolution of primary issue. PE: GEN: NAD, eating ice LUNGS: CTAB HEART: RRR ABD: large, soft, on the quiet side, not really uncomfortable NEURO/PSYCH: A & O �3 A/P: Recurrent pancreatitis Leukocytosis - better DM/hyperglycemia, SARAH - better HTN and hypokalemia - per primary Abnormal CT - inflammation from duodenum into RLQ involving pancreatic head and hepatic flexure, lobulated appearance of pancreatic tail with fatty atrophy of the pancreatic head and neck -- Try clears. THAI DELGADILLO Apr 19, 2019 11:44
[2019-04-19] MEDS: INSULIN NPH/REG INSULIN 70/30 300 UNITS/3 ML INSULN.PEN. SQ SCH ×2 (11:49→21:00)
--- NOTE | 2019-04-19 13:27 | PDOC ---
[employer] PROGRESS NOTE Chief Complaint Chief Complaint Acute Pancreatitis (initial lipase level of 1691, now 905) Abd Pain w/ n/v DM2 HTN History of Present Illness History of Present Illness 8�19�2019 Patient seen and examined Discussed with case management CAT scan reviewed 1. Extensive Inflammatory changes extending from the duodenum down into the right lower quadrant mesentery and involving the pancreatic head as well as the hepatic flexure of the colon. Origin of findings is difficult to ascertain and possible differential considerations include colitis, duodenitis, and/or pancreatitis. 2. Lobulated appearance of the pancreatic tail with fatty atrophy of the pancreatic head and neck. Findings are abnormal possible differential considerations include pancreatic malignancy. Autoimmune pancreatitis is also considered. Recommend correlation with IgG4 levels. Further evaluation with MRI MRCP with contrast is recommended after resolution of primary issue. 04/18/19 Resting with NAD 04/17/19 Pt seen/examined at bedside DW pt Pt resting and did not have any concerns Vitals/I&O Vitals/I&O: Vital Signs Date Time Temp Pulse Resp B/P (MAP) Pulse Ox O2 Delivery O2 Flow Rate FiO2 04/19/19 11:42 75 158/86 04/19/19 10:54 97.8 18 96 Room Air 97.8 04/19/19 03:00 2.0 I & O 04/18/19 04/18/19 04/19/19 14:59 22:59 06:59 Intake Total 0 ml 120 ml 1560 ml Output Total 300 ml 400 ml 1000 ml Balance -300 ml -280 ml 560 ml Physical Exam General: Alert, Oriented X3, Cooperative, No acute distress Heart: Regular rate, Normal S1, Normal S2 Lungs: Clear Abdomen: Soft, Other (TTP) Extremities: No clubbing, No cyanosis, No edema, Normal pulses, No tenderness/swelling Skin: No rashes, No breakdown, No significant lesion Labs Labs: Laboratory Tests Test 04/18/19 15:08 04/18/19 15:31 04/18/19 17:01 04/18/19 20:53 Glucose (Fingerstick) 54 mg/dL (70-99) 83 mg/dL (70-99) 82 mg/dL (70-99) 126 mg/dL (70-99) Test 04/19/19 03:20 04/19/19 07:37 04/19/19 11:26 White Blood Count 11.6 x10^3/uL (4.0-11.0) Red Blood Count 4.39 x10^6/uL (4.30-5.70) Hemoglobin 13.2 g/dL (13.0-17.5) Hematocrit 38.1 % (39.0-53.0) Mean Corpuscular Volume 87 fL (79-100) Mean Corpuscular Hemoglobin 30 pg (25-35) Mean Corpuscular Hemoglobin Concent 35 g/dL (31-37) Red Cell Distribution Width 13.8 % (11.5-14.5) Platelet Count 168 x10^3/uL (140-400) Neutrophils (%) (Auto) 84 % (31-73) Lymphocytes (%) (Auto) 8 % (24-48) Monocytes (%) (Auto) 5 % (0-9) Eosinophils (%) (Auto) 2 % (0-3) Basophils (%) (Auto) 0 % (0-3) Neutrophils # (Auto) 9.7 x10^3/uL (1.8-7.7) Lymphocytes # (Auto) 0.9 x10^3/uL (1.0-4.8) Monocytes # (Auto) 0.6 x10^3/uL (0.0-1.1) Eosinophils # (Auto) 0.2 x10^3/uL (0.0-0.7) Basophils # (Auto) 0.0 x10^3/uL (0.0-0.2) Sodium Level 137 mmol/L (136-145) Potassium Level 3.0 mmol/L (3.5-5.1) Chloride Level 100 mmol/L (98-107) Carbon Dioxide Level 25 mmol/L (21-32) Anion Gap 12 (6-14) Blood Urea Nitrogen 17 mg/dL (8-26) Creatinine 1.3 mg/dL (0.7-1.3) Estimated GFR (Cockcroft-Gault) 57.5 Glucose Level 142 mg/dL (70-99) Calcium Level 8.2 mg/dL (8.5-10.1) Lipase 751 U/L (73-393) Glucose (Fingerstick) 161 mg/dL (70-99) 198 mg/dL (70-99) Review of Systems Review of Systems: co hunger no co fatigue Assessment and Plan Assessmemt and Plan Assessment Acute Pancreatitis (initial lipase level of 1691, now 905) Abd Pain w/ n/v DM2 HTN Plan IV fluids IV pain meds PRN IV Ciprofloxacin Trend lipase DVT prophylaxis Home meds PT/OT Labs CA 19.9 Hope to advance diet when approved by GI Awaiting GI input Comment Review of Relevant I have reviewed the following items jael (where applicable) has been applied. Medications: Current Medications Medications (Trade) Dose Ordered Sig/Tigist Route PRN Reason Start Time Stop Time Status Last Admin Dose Admin Amlodipine Besylate (Norvasc) 5 mg DAILY PO 04/19/19 09:00 04/19/19 11:42 Amlodipine Besylate (Norvasc) 10 mg 1X ONCE PO 04/18/19 20:45 04/18/19 20:46 DC 04/18/19 21:16 KEVIN LOVE III DO Apr 19, 2019 13:26
[2019-04-19 15:00] VITALS: BP 150/82
[2019-04-19] MEDS ORDERED: POTASSIUM CHLORIDE 20 MEQ TABLET.ER. PO ONE (15:15)
[2019-04-19] MEDS: HYDROcodone/APAP 5/325MG 1 TAB TABLET PO PRN ×2 (17:54→22:39)
[2019-04-19 19:00] VITALS: BP 162/96
[2019-04-19] MEDS: FAMOTIDINE 20 MG/2 ML VIAL IVP SCH (21:33)
[2019-04-19] MEDS: ATORVASTATIN CALCIUM 20 MG TABLET PO SCH (21:33)
[2019-04-19 23:00] VITALS: BP 119/70
[2019-04-20 03:00] VITALS: BP 167/87
[2019-04-20 06:10] LABS: IGG1 466 mg/dL (248-810); IGG2 368 mg/dL (130-555); IGG3 58 mg/dL (15-102); IGG4 119 mg/dL (2-96); TOTAL IGG 1025 mg/dL (700-1600)
[2019-04-20] MEDS: LEVOTHYROXINE 75 MCG TABLET PO SCH (06:16)
[2019-04-20] MEDS: IV NORMAL SALINE 1000ML BAG 1,000 ML IV SCH (06:17)
[2019-04-20 07:00] VITALS: BP 194/102
[2019-04-20] MEDS: INSULIN LISPRO 300 UNITS/3 ML VIAL. SQ SCH ×4 (08:00→12:56)
[2019-04-20] MEDS: ASPIRIN 325 MG TABLET PO SCH (08:00)
[2019-04-20] MEDS ORDERED: POTASSIUM CHLORIDE 20 MEQ TABLET.ER. PO SCH (08:00)
[2019-04-20 08:14] LABS: BASO % 0 % (0-3); EOS # 0.3 x10^3/uL (0.0-0.7); EOS % 3 % (0-3); HEMATOCRIT 38.1 % (39.0-53.0); HEMOGLOBIN 13.3 g/dL (13.0-17.5); LYMPH # 0.7 x10^3/uL (1.0-4.8); LYMPH % 7 % (24-48); MEAN CORPUSCULAR HEMOGLOBIN 30 pg (25-35); MEAN CORPUSCULAR HGB CONC 35 g/dL (31-37); MEAN CORPUSCULAR VOLUME 87 fL (79-100); MONO # 0.7 x10^3/uL (0.0-1.1); MONO % 7 % (0-9); NEUT # 7.4 x10^3/uL (1.8-7.7); NEUT % 82 % (31-73); PLATELET COUNT 171 x10^3/uL (140-400); RED CELL DISTRIBUTION WIDTH 14.1 % (11.5-14.5); WHITE BLOOD COUNT 9.1 x10^3/uL (4.0-11.0)
[2019-04-20 08:35] LABS: CREATININE 1.3 mg/dL (0.7-1.3); GFR 57.5
[2019-04-20] MEDS: DOCUSATE SODIUM 100 MG CAPSULE. PO SCH (08:41)
[2019-04-20] MEDS: FUROSEMIDE 20 MG TABLET PO SCH (08:41)
[2019-04-20] MEDS: POLYETHYLENE GLYCOL 3350 17 GM PACKET. PO SCH (08:41)
[2019-04-20] MEDS: DULoxetine HCL 30 MG CAPSULE.DR PO SCH (08:41)
[2019-04-20] MEDS: amLODIPine BESYLATE 5 MG TABLET PO SCH (08:41)
[2019-04-20 08:42] LABS: POTASSIUM 2.9 mmol/L (3.5-5.1)
[2019-04-20] MEDS: ALLOPURINOL 100 MG TABLET. PO SCH (08:42)
[2019-04-20] MEDS: LISINOPRIL 20 MG TABLET PO SCH (08:42)
[2019-04-20] MEDS: INSULIN NPH/REG INSULIN 70/30 300 UNITS/3 ML INSULN.PEN. SQ SCH (08:43)
--- NOTE | 2019-04-20 09:17 | PDOC ---
Subjective: Subjective: Has a headache, says his blood pressure has been high. Abd pain is much better, no n/v, tolerating clears and would like "food." Passing gas. Had a little stool a few days ago - had to strain. Objective: Vital Signs: Vital Signs Date Time Temp Pulse Resp B/P (MAP) Pulse Ox O2 Delivery O2 Flow Rate FiO2 04/20/19 08:46 86 193/96 04/20/19 07:00 97.8 18 93 Room Air 97.8 Labs: Laboratory Tests Test 04/19/19 11:26 04/19/19 16:33 04/19/19 21:23 04/20/19 07:05 Glucose (Fingerstick) 198 mg/dL 192 mg/dL 113 mg/dL White Blood Count 9.1 x10^3/uL Red Blood Count 4.40 x10^6/uL Hemoglobin 13.3 g/dL Hematocrit 38.1 % Mean Corpuscular Volume 87 fL Mean Corpuscular Hemoglobin 30 pg Mean Corpuscular Hemoglobin Concent 35 g/dL Red Cell Distribution Width 14.1 % Platelet Count 171 x10^3/uL Neutrophils (%) (Auto) 82 % Lymphocytes (%) (Auto) 7 % Monocytes (%) (Auto) 7 % Eosinophils (%) (Auto) 3 % Basophils (%) (Auto) 0 % Neutrophils # (Auto) 7.4 x10^3/uL Lymphocytes # (Auto) 0.7 x10^3/uL Monocytes # (Auto) 0.7 x10^3/uL Eosinophils # (Auto) 0.3 x10^3/uL Basophils # (Auto) 0.0 x10^3/uL Sodium Level 137 mmol/L Potassium Level 2.9 mmol/L Chloride Level 102 mmol/L Carbon Dioxide Level 23 mmol/L Anion Gap 12 Blood Urea Nitrogen 17 mg/dL Creatinine 1.3 mg/dL Estimated GFR (Cockcroft-Gault) 57.5 Glucose Level 192 mg/dL Calcium Level 8.0 mg/dL Lipase 610 U/L Test 04/20/19 07:37 Glucose (Fingerstick) 179 mg/dL PE: GEN: NAD - was asleep LUNGS: CTAB HEART: RRR ABD: NABS, S/ND - does not seem tender this morning NEURO/PSYCH: A & O �3 A/P: Recurrent pancreatitis HTN and hypokalemia - per primary Constipation -- Some elevation in CA19-9 and IgG4 - will review w/ Dr. Malloy. He requests food - try full liquids for lunch. 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 THAI DELGADILLO Apr 20, 2019 09:17
[2019-04-20] MEDS ORDERED: BISACODYL 5 MG TABLET.DR. PO ONE (09:30)
[2019-04-20] MEDS ORDERED: POTASSIUM CHLORIDE 20 MEQ TABLET.ER. PO ONE ×2 (10:00→14:00)
--- NOTE | 2019-04-20 10:07 | PDOC ---
[employer] PROGRESS NOTE Chief Complaint Chief Complaint Acute Pancreatitis (initial lipase level of 1691, now 905) Abd Pain w/ n/v DM2 HTN History of Present Illness History of Present Illness 04-20-19 Patient seen and examined lying in bed watching TV Discussed with nurse 8�19�2019 Patient seen and examined Discussed with case management CAT scan reviewed 1. Extensive Inflammatory changes extending from the duodenum down into the right lower quadrant mesentery and involving the pancreatic head as well as the hepatic flexure of the colon. Origin of findings is difficult to ascertain and possible differential considerations include colitis, duodenitis, and/or pancreatitis. 2. Lobulated appearance of the pancreatic tail with fatty atrophy of the pancreatic head and neck. Findings are abnormal possible differential considerations include pancreatic malignancy. Autoimmune pancreatitis is also considered. Recommend correlation with IgG4 levels. Further evaluation with MRI MRCP with contrast is recommended after resolution of primary issue. 04/18/19 Resting with NAD 04/17/19 Pt seen/examined at bedside DW pt Pt resting and did not have any concerns Vitals/I&O Vitals/I&O: Vital Signs Date Time Temp Pulse Resp B/P (MAP) Pulse Ox O2 Delivery O2 Flow Rate FiO2 04/20/19 08:46 86 193/96 04/20/19 07:00 97.8 18 93 Room Air 97.8 I & O 04/19/19 04/19/19 04/20/19 15:00 23:00 07:00 Intake Total 600 ml 600 ml 480 ml Output Total 1000 ml 2050 ml 2800 ml Balance -400 ml -1450 ml -2320 ml Physical Exam General: Alert, Oriented X3, Cooperative, No acute distress Heart: Regular rate, Normal S1, Normal S2 Lungs: Clear Abdomen: Soft, Other (TTP) Extremities: No clubbing, No cyanosis, No edema, Normal pulses, No tendernes s/swelling Skin: No rashes, No breakdown, No significant lesion Labs Labs: Laboratory Tests Test 04/19/19 11:26 04/19/19 16:33 04/19/19 21:23 04/20/19 07:05 Glucose (Fingerstick) 198 mg/dL (70-99) 192 mg/dL (70-99) 113 mg/dL (70-99) White Blood Count 9.1 x10^3/uL (4.0-11.0) Red Blood Count 4.40 x10^6/uL (4.30-5.70) Hemoglobin 13.3 g/dL (13.0-17.5) Hematocrit 38.1 % (39.0-53.0) Mean Corpuscular Volume 87 fL (79-100) Mean Corpuscular Hemoglobin 30 pg (25-35) Mean Corpuscular Hemoglobin Concent 35 g/dL (31-37) Red Cell Distribution Width 14.1 % (11.5-14.5) Platelet Count 171 x10^3/uL (140-400) Neutrophils (%) (Auto) 82 % (31-73) Lymphocytes (%) (Auto) 7 % (24-48) Monocytes (%) (Auto) 7 % (0-9) Eosinophils (%) (Auto) 3 % (0-3) Basophils (%) (Auto) 0 % (0-3) Neutrophils # (Auto) 7.4 x10^3/uL (1.8-7.7) Lymphocytes # (Auto) 0.7 x10^3/uL (1.0-4.8) Monocytes # (Auto) 0.7 x10^3/uL (0.0-1.1) Eosinophils # (Auto) 0.3 x10^3/uL (0.0-0.7) Basophils # (Auto) 0.0 x10^3/uL (0.0-0.2) Sodium Level 137 mmol/L (136-145) Potassium Level 2.9 mmol/L (3.5-5.1) Chloride Level 102 mmol/L (98-107) Carbon Dioxide Level 23 mmol/L (21-32) Anion Gap 12 (6-14) Blood Urea Nitrogen 17 mg/dL (8-26) Creatinine 1.3 mg/dL (0.7-1.3) Estimated GFR (Cockcroft-Gault) 57.5 Glucose Level 192 mg/dL (70-99) Calcium Level 8.0 mg/dL (8.5-10.1) Lipase 610 U/L (73-393) Test 04/20/19 07:37 Glucose (Fingerstick) 179 mg/dL (70-99) Review of Systems Review of Systems: No co acute pain No co hunger Assessment and Plan Assessmemt and Plan Assessmemt and Plan Assessment Acute Pancreatitis (initial lipase level of 1691, now 610) Abd Pain w/ n/v DM2 HTN Plan IV fluids IV pain meds PRN Trend lipase DVT prophylaxis Continue Home meds PT/OT Trend Labs Clonidine 0.12 mg PO TID Discharge when Ok with GI Comment Review of Relevant I have reviewed the following items jael (where applicable) has been applied. Medications: Current Medications Medications (Trade) Dose Ordered Sig/Tigist Route PRN Reason Start Time Stop Time Status Last Admin Dose Admin Potassium Chloride (Klor-Con) 40 meq ONCE ONCE PO 04/19/19 15:15 04/19/19 15:16 DC 04/19/19 17:52 Potassium Chloride (Klor-Con) 20 meq DAILYWBKFT PO 04/20/19 08:00 04/20/19 08:46 KEVIN LOVE III DO Apr 20, 2019 10:06
[2019-04-20 10:49] VITALS: BP 181/90
--- NOTE | 2019-04-20 11:33 | DS ---
DATE OF DISCHARGE: 04/20/2019 ADMISSION DIAGNOSIS: Pancreatitis. DISCHARGE DIAGNOSES: Resolving pancreatitis, hypertension, hypokalemia, diverticulosis, diabetes, hypothyroidism. CONSULTS: GI. PROCEDURES: None. HOSPITAL COURSE: The patient is a pleasant middle-aged male who resides at [facility] who presented with pancreatitis. His lipase peaked at 1691. It is now down to 610. He is wanting to eat and leave. I talked to the [facility] doctor yesterday. We did have a CA 19-9 level pending, but clinically he looks great. This morning, the 19-9 level is back and is slightly high at 54. If okay with GI, we are going to get him back to the [facility] with very close outpatient followup. DISPOSITION: [facility]. ACTIVITY: As tolerated. DIET: Soft mechanical. MEDICATIONS: Please see the MRAD. TOTAL TIME: 32 minutes. KEVIN LOVE DO DR: PEÑA/maddison JOB#: [id number] / [id number]
[2019-04-20] MEDS ORDERED: cloNIDine HCL 0.1 MG TABLET PO SCH (14:00)
[2019-04-20 14:32] VITALS: BP 168/68
--- NOTE | 2019-04-20 16:30 | NUR ---
REPORT CALLED TO ELISABETH AT [facility], QUESTIONS AND CONCERNS ANSWERED, DISCHARGE PACKET TO BE SENT WITH PATIENT PER THE GUARD(S), WHEN THEY ARRIVE.
--- NOTE | 2019-04-20 17:35 | NUR ---
PATIENT LEAVES THE UNIT ALONGSIDE THE GUARD, EMOTIONAL SUPPORT GIVEN, FOLLOW UP APPOINTMENTS ENCOURAGED.
[2019-04-20] MEDS ORDERED: POLYETHYLENE GLYCOL 3350 17 GM PACKET. PO SCH (21:00)
[2019-04-21] MEDS ORDERED: PANTOPRAZOLE 40 MG TABLET.DR. PO SCH (07:30)
[2019-04-23] MEDS ORDERED: ERGOCALCIFEROL (VITAMIN D2) 50,000 UNIT CAPSULE. PO SCH (09:00)
== END 2019-04-20 17:46 | DRG 438 ==
LOC: EEVIPCON 17:09 → ER 17:09 → 5 SOUTH 20:39
PROVIDERS: ADMIT Internal Medicine; ATTEND Internal Medicine
DX: K85.90 Acute pancreatitis without necrosis or infection, unspecified (principal); E11.00 Type 2 diabetes mellitus with hyperosmolarity without nonketotic hyperglycemic-hyperosmolar coma (NKHHC); Z68.42 Body mass index [BMI] 45.0-49.9, adult; N17.9 Acute kidney failure, unspecified; E66.01 Morbid (severe) obesity due to excess calories; E03.9 Hypothyroidism, unspecified; E11.22 Type 2 diabetes mellitus with diabetic chronic kidney disease; E11.65 Type 2 diabetes mellitus with hyperglycemia; E78.5 Hyperlipidemia, unspecified; E87.6 Hypokalemia; I12.9 Hypertensive chronic kidney disease with stage 1 through stage 4 chronic kidney disease, or unspecified chronic kidney disease; K57.90 Diverticulosis of intestine, part unspecified, without perforation or abscess without bleeding; K86.1 Other chronic pancreatitis; K59.00 Constipation, unspecified; N18.9 Chronic kidney disease, unspecified; E66.9 Obesity, unspecified; M10.9 Gout, unspecified; M19.90 Unspecified osteoarthritis, unspecified site
CPT/HCPCS: 36415; 74176; 80048; 80053; 80307; 81001; 82553; 82787; 82962; 83036; 83690; 83735; 83880; 84439; 84443; 84481; 84484; 85007; 85025; 86301; 87641; 93005; 96361; 96374; 96375; J0744; J1815; J2270; J2405; J3475; J3490; J7030; J7042; 99285-25; G0378

== ENCOUNTER → 2019-06-02 | Outpatient (CLI) | payer MEDICARE, OTHER ==
[~2019-06-02] MED LIST: ACET325T9 PO; ALBU2.5V8 IH; ALBU2.5V8 INH; ALLO100T PO; ASPI-630 PO; ATOR20TA58 PO; BISA-42 PO; CETI10TA16 PO; CETI10TA22 PO; CICL6.1H3 IH; DOCU100C28 PO; DULO60CA6 PO; ERGO500027 PO; FURO-68 PO; HUM100IN3 SQ; INSU100I13 SQ; INSU100V5 SQ; LEVO75TA5 PO; LISI-130 PO; METF10007 PO; POLY17PO29 PO; RANI150T2 PO; SIME125T PO; SPIR25TA5 PO; SULF1TAB24 PO; TRIA15OI TP
--- NOTE | 2019-06-02 17:34 | KCIC ---
Examination: MRCP WO CONTRAST History: Acute pancreatitis. Comparison/Correlation: 04/16/2019 CT abdomen and pelvis without contrast Findings: Multiplanar, multisequence images of the abdomen were obtained. MRCP protocol was utilized. Maximum intensity projection images were obtained. Thick slab images provided. Motion limits evaluation of multiple series. Common hepatic duct and common bile duct diameter is grossly unremarkable. Pancreatic ductal diameter is unremarkable. No evidence of pancreatic divisum.. Intermediate signal intensity mass involving the distal pancreatic body and tail is noted corresponding to CT findings. This heterogeneous mass measures up to 10.1 cm transverse by 4.9 cm anteroposterior by 4.6 cm superoinferiorly. This is similar upon correlation previous CT examinations considering differences in measurement technique. Similar signal intensity smaller mass lesion involving the pancreatic head is present measuring up to 2.2 cm x 1.9 cm x 4.3 cm. It is best seen on axial image 24 of series 12 and coronal image 12 of series 11. No loculated collections. No biliary dilatation. Punctate calculus within the dependent aspect of the gallbladder near the neck is suspected on coronal image 21 of series 10 and coronal image 17 of series 11. No upper abdominal ascites. Bilateral small renal cysts are present. Liver and spleen are not fully included on all series for purposes of this exam. Visualized liver and spleen are unremarkable. Adrenal glands are unremarkable. Impression: Distal finger body and tail masses present without significant change. A smaller mass with similar signal characteristics is identified involving the pancreatic head. This does not appear to have a corresponding finding on the prior exam. No loculated collections. No enlarged upper abdominal lymph nodes. Electronically signed by: Christopher Lakhani MD (06/02/2019 5:31 PM) [facility]
== END | disposition home or self-care (01) ==
LOC: KCIC MRI 07:53
PROVIDERS: ATTEND Family Medicine
DX: N28.1 Cyst of kidney, acquired (principal); K85.90 Acute pancreatitis without necrosis or infection, unspecified
CPT/HCPCS: 74181

== ENCOUNTER → 2019-06-09 | Day surgery (SDC) | payer OTHER ==
[~2019-06-09] MED LIST changes: -ALBU2.5V8 IH; -CETI10TA22 PO; -INSU100I13 SQ; +IV RINGERS,LACTATED 1000ML 1,000 ML IV SCH; +LIDOCAINE 2% PF 5 ML VIAL. ONE; +PROPOFOL 40 ML IV ONE; -SPIR25TA5 PO; -TRIA15OI TP
--- NOTE | 2019-06-09 07:43 | CONS ---
DATE OF CONSULTATION: REFERRING PHYSICIAN: Leida Suh MD REASON FOR CONSULTATION: History of colonic polyps. HISTORY OF PRESENT ILLNESS: A 54-year-old male with past medical history significant for hypertension, diverticulosis, gout, diabetes, hypothyroidism, is seen for interval colonoscopy. He has had colonic polyps in the past. He has had increased difficulties with constipation. He says that he can go several weeks without moving his bowels. There has been no bleeding. Weight has been slowly decreasing and he is here for further evaluation. PAST MEDICAL HISTORY: Hypertension, diverticulosis, gout, diabetes. ALLERGIES: None. MEDICATIONS: Include allopurinol, aspirin, atorvastatin, Cymbalta, vitamin D, Lasix, insulin, levothyroxine, lisinopril, metformin, polyethylene glycol, simethicone, Bactrim. FAMILY AND SOCIAL HISTORY: He is presently incarcerated. Does not drink or smoke. [facility] REVIEW OF SYSTEMS: Per records. PHYSICAL EXAMINATION: GENERAL: Reveals a well-nourished, well-developed male who is alert, cooperative, in no acute distress. VITAL SIGNS: Temperature is 97.3, pulse 92, respirations 20. HEENT: Normocephalic, atraumatic head. Pupils and extraocular muscles are not tested. Sclerae anicteric. NECK: Supple. LUNGS: Clear. CARDIOVASCULAR: Reveals S1, S2 without S3, S4 or appreciable murmur. ABDOMEN: Reveals a soft abdomen, normal bowel sounds, without appreciable hepatosplenomegaly. EXTREMITIES: Reveals no cyanosis, clubbing or edema. IMPRESSION: History of colonic polyps, constipation. Interval colonoscopy is recommended. Risks and benefits of procedure including risk of hemorrhage and perforation during the operation were discussed. The patient is willing to proceed. JOAN VUONG MD DR: TOBY/maddison JOB#: [id number] / [id number]
[2019-06-09 08:25] VITALS: BP 127/68
--- NOTE | 2019-06-10 15:07 | PATHOLOGY ---
[facility] Accession Number: [id number] . 01 Material submitted: . colon - SIGMOID POLYP. Modifiers: sigmoid . 01 Clinical history: . Hx polyps . 02 Diagnosis: Colon biopsies, sigmoid polyp: - Tubular adenoma. (JPM:nicole; 06/10/2019) QMS 06/10/2019 0857 Local . 02 Comment: There is no high grade dysplasia or evidence of malignancy. . 02 Electronically signed: . Trent Damian MD, Pathologist NPI- [id number] . 01 Gross description: . The specimen is received in formalin, labeled "[place], [place], sigmoid polyp" and consists of 3 fragments of pink-acevedo tissue measuring between 0.3 x 0.1 cm and 0.6 x 0.2 cm which are entirely submitted in A1. (SDY; 06/09/2019) SYU/SYU 06/09/2019 1612 Local . 02 Pathologist provided ICD-10: D12.5 . 02 CPT . 223537 Specimen Comment: A courtesy copy of this report has been sent to Specimen Comment: [phone], . Specimen Comment: Report sent to / DR SANCHEZ Performed at: 01 [facility] [address] [facility] [address], [place], [place] [id number] MD Jason Victor MD Phone: [phone] Performed at: 02 [facility] [address] [place], [place] [id number] MD Trent Damian MD Phone: [phone]
== END ==
LOC: ENDOS 06:38 → EEVIPCON 07:30
PROVIDERS: ATTEND Internal Medicine Gastroenterology
DX: R19.7 Diarrhea, unspecified (principal); K64.0 First degree hemorrhoids; D12.5 Benign neoplasm of sigmoid colon; K57.30 Diverticulosis of large intestine without perforation or abscess without bleeding; M10.9 Gout, unspecified; E11.9 Type 2 diabetes mellitus without complications; I10 Essential (primary) hypertension; Z79.4 Long term (current) use of insulin; Z86.010 Personal history of colon polyps; Z98.890 Other specified postprocedural states
CPT/HCPCS: 45380; 88305; J2001; J2704

== ENCOUNTER 2019-06-24 07:20 | Outpatient (CLI) | payer OTHER ==
[~2019-06-24] VITALS: Ht 185.4 cm; Wt 151.5 kg
[2019-06-24] VITALS (12 sets, daily range): BP systolic 120–151; BP diastolic 56–84
[~2019-06-24 07:20] MED LIST changes: -IV RINGERS,LACTATED 1000ML 1,000 ML IV SCH; -LIDOCAINE 2% PF 5 ML VIAL. ONE; -PROPOFOL 40 ML IV ONE
[2019-06-24 07:48] LABS: BASO # 0.1 x10^3/uL (0.0-0.2); BASO % 1 % (0-3); EOS # 0.1 x10^3/uL (0.0-0.7); EOS % 2 % (0-3); HEMATOCRIT 37.3 % (39.0-53.0); HEMOGLOBIN 12.5 g/dL (13.0-17.5); LYMPH # 1.3 x10^3/uL (1.0-4.8); LYMPH % 19 % (24-48); MEAN CORPUSCULAR HEMOGLOBIN 29 pg (25-35); MEAN CORPUSCULAR HGB CONC 34 g/dL (31-37); MEAN CORPUSCULAR VOLUME 86 fL (79-100); MONO # 0.4 x10^3/uL (0.0-1.1); MONO % 6 % (0-9); NEUT % 72 % (31-73); PLATELET COUNT 303 x10^3/uL (140-400); RED BLOOD COUNT 4.32 x10^6/uL (4.30-5.70); RED CELL DISTRIBUTION WIDTH 13.4 % (11.5-14.5)
[2019-06-24] MEDS ORDERED: SPIR25TA5 PO (07:51)
[2019-06-24] MEDS ORDERED: CETI10TA22 PO (07:52)
[2019-06-24] MEDS ORDERED: ALBU2.5V8 IH (07:53)
[2019-06-24] MEDS ORDERED: TRIA15OI TP (07:54)
[2019-06-24] MEDS ORDERED: INSU100I13 SQ (07:55)
[2019-06-24 07:57] LABS: PROTHROMBIN TIME PATIENT 13.1 SEC (11.7-14.0)
[2019-06-24] MEDS ORDERED: LIDOCAINE WITH 8.4% SOD BICARB 3 ML DISP.SYRIN. ONE (08:04)
[2019-06-24] MEDS ORDERED: MIDAZOLAM HCL/PF 5 MG/5 ML VIAL. ONE (08:32)
[2019-06-24] MEDS ORDERED: fentaNYL PF VIAL 250 MCG/5 ML VIAL ONE (08:32)
[2019-06-24] MEDS ORDERED: fentaNYL PF VIAL 250 MCG/5 ML VIAL IV ONE (08:45)
[2019-06-24] MEDS ORDERED: MIDAZOLAM HCL/PF 5 MG/5 ML VIAL. IV ONE (08:45)
[2019-06-24] MEDS ORDERED: LIDOCAINE WITH 8.4% SOD BICARB 3 ML DISP.SYRIN. IJ ONE (08:45)
--- NOTE | 2019-06-24 11:08 | NUR ---
pt returned to correctional facility with guard. Discharge instructions reviewed with pt.
--- NOTE | 2019-06-25 11:22 | RAD ---
CT-guided biopsy of masslike thickening of the pancreatic tail 06/25/2019 9:17 AM Procedure: Clinical Indication: PANCREAS MASS Discussion: The procedure was explained in its entirety to the patient or the patients designated nutrition representative by a member of the treatment team, including a discussion of the risks, benefits and commonly accepted alternatives to the procedure, as well as the expected consequences of no therapy whatsoever. Discussion of the risks included, but was not limited to, those that are most frequent and those that are rare but possibly severe or life-threatening, as well as the possibility of unforeseen complications. All elements of maximal sterile barrier technique including the use of a cap, mask, sterile gown, sterile gloves, large sterile sheet, appropriate hand hygiene, and 2% chlorhexidine for cutaneous antisepsis (or acceptable alternative antiseptic per current guidelines) were followed for this procedure. The anterior abdomen was prepped and draped using sterile barrier technique. 1% lidocaine was administered for local anesthesia. Under intermittent CT guidance a 19-gauge needle was advanced to the periphery of the mass. Core biopsy samples were obtained and placed in formalin. The needle was removed. Manual pressure was held. Repeat CT imaging demonstrates no immediate complication. The procedures performed under conscious sedation including continuous cardiopulmonary monitoring via dedicated sedation nurse. Itbg-af-ptup sedation time: 30 minutes Impression: CT-guided biopsy, masslike thickening of the pancreatic tail
== END 2019-06-24 11:19 ==
LOC: INTRAD 07:20
PROVIDERS: ATTEND Family Medicine
DX: K86.89 Other specified diseases of pancreas (principal); Z79.01 Long term (current) use of anticoagulants
CPT/HCPCS: 36415; 49180; 77012; 85025; 85610; 85730; 99152; 99153; J2250; J3010